=== PATIENT | male | born 1965 | race Caucasian/White ===

== ENCOUNTER → 2019-08-24 | Outpatient (CLI) | payer MEDICARE, OTHER ==
[~2019-08-24] MED LIST: ASPIRIN325 MG PO; ATENOLOL50 MG PO; ATORVASTATIN CA20 MG PO; CENTRUM MEN'S1 EACH PO; CYMBALTA30 MG PO; FLECTOR1 EACH PO; LASIX40 MG PO; LISINOPRIL5 MG PO; POTASSIUM CHLO20 ME1 PO; TIZANIDINE HCL4 MG PO; TOPIRAMATE25 MG PO; TYLENOL # 31 EA PO; ZYRTEC10 M3 PO
--- NOTE | 2019-08-24 11:41 | Diagnostic Imaging Report ---
EXAMINATION: CHEST 2 VIEWS INDICATION: Pre-operative COMPARISON: None FINDINGS: LINES/TUBES:None LUNGS:The lungs are hyperinflated. No focal consolidation or pulmonary edema. PLEURA:No pleural effusion or pneumothorax. MEDIASTINUM:The cardiomediastinal silhouette appears normal in size and shape. BONES/SOFT TISSUES:No acute osseous injury. ABDOMEN:No free air under the diaphragm. IMPRESSION: Hyperinflated lungs. No focal pneumonia or pulmonary edema. Signed by: Holger Lazcano MD on 08/24/2019 11:38 AM
[2019-08-24 11:42] LABS: BASOPHILS % 0.1 % (0.0-1.0); HEMATOCRIT 43.2 % (38.2-49.6); HEMOGLOBIN 13.9 g/dL (14.0-18.0); LYMPHOCYTES # (AUTO) 2.1 (1.0-3.2); LYMPHOCYTES % 18.3 % (18.0-39.1); MEAN CORPUSCULAR HEMOGLOBIN 28.5 pg (28-32); MEAN CORPUSCULAR HGB CONC 32.2 g/dL (31-35); MEAN CORPUSCULAR VOLUME 88.7 fL (81-99); MONOCYTES # (AUTO) 1.1 (0.2-0.8); MONOCYTES % 9.5 % (4.4-11.3); NEUTROPHILS # (AUTO) 8.1 (2.1-6.9); NEUTROPHILS % 71.7 % (38.7-80.0); PLATELET COUNT 190 x10e3/uL (140-360); RED BLOOD COUNT 4.87 x10e6/uL (4.3-5.7); RED CELL DISTRIBUTION WIDTH 14.1 % (11.7-14.4)
== END ==
LOC: DX 13:50 → EDSTATUS 08-29 09:00
PROVIDERS: ATTEND Surgery
DX: Z01.818 Encounter for other preprocedural examination (principal); E66.01 Morbid (severe) obesity due to excess calories; Z11.59 Encounter for screening for other viral diseases
CPT/HCPCS: 36415; 71046; 85025; 87635; 93005

== ENCOUNTER 2020-02-27 08:29 | Inpatient (IN) | payer MEDICARE ==
[2020-02-23 14:51] LABS: BASOPHILS % 0.1 % (0.0-1.0); HEMATOCRIT 41.6 % (38.2-49.6); HEMOGLOBIN 12.9 g/dL (14.0-18.0); LYMPHOCYTES # (AUTO) 2.3 (1.0-3.2); LYMPHOCYTES % 24.2 % (18.0-39.1); MEAN CORPUSCULAR HEMOGLOBIN 25.4 pg (28-32); MEAN CORPUSCULAR VOLUME 81.9 fL (81-99); MONOCYTES % 10.5 % (4.4-11.3); NEUTROPHILS # (AUTO) 6.2 (2.1-6.9); NEUTROPHILS % 64.7 % (38.7-80.0); PLATELET COUNT 252 x10e3/uL (140-360); RED BLOOD COUNT 5.08 x10e6/uL (4.3-5.7); RED CELL DISTRIBUTION WIDTH 15.4 % (11.7-14.4)
[2020-02-23 15:07] LABS: ANION GAP 13.1 mmol/L (8-16); BLOOD UREA NITROGEN 19 mg/dL (7-26); BUN/CREATININE RATIO 20 (6-25); CALCIUM 9.1 mg/dL (8.4-10.2); CARBON DIOXIDE 26 mmol/L (22-29); CHLORIDE 105 mmol/L (98-107); CREATININE, SERUM 0.93 mg/dL (0.72-1.25); EST GLOMERULAR FILTRATION RATE > 60 ML/MIN (60-); GLUCOSE 106 mg/dL (74-118); POTASSIUM 4.1 mmol/L (3.5-5.1); SODIUM 140 mmol/L (136-145)
[~2020-02-27] VITALS: Ht 182.9 cm; Wt 192.6 kg
[2020-02-27] MEDS ORDERED: CEFAZOLIN SOD 1 GM/NS 50ML 100 ML IV ONE (08:52)
[2020-02-27] MEDS ORDERED: BUPIVACAINE HCL 0.5% INJ 30 ML VIAL INJ ONE (08:55)
[2020-02-27] MEDS ORDERED: ACETAMINOPHEN 1000 MG/100 ML 100 ML IV ONE (09:10)
[2020-02-27] MEDS ORDERED: SCOPOLAMINE 1.5 MG PATCH ONE (09:11)
[2020-02-27] MEDS ORDERED: DICLOFENAC PO (09:19)
[2020-02-27] MEDS ORDERED: METFORMIN PO (09:19)
[2020-02-27] MEDS ORDERED: SCOPOLAMINE 1.5 MG PATCH TOP SCH (11:15)
[2020-02-27] MEDS ORDERED: ONDANSETRON HCL INJ 2MG/ML 2ML 2 MG/ML VIAL IV PRN (11:15)
[2020-02-27] MEDS ORDERED: METOCLOPRAMIDE HCL 10 MG/2ML VIAL ONE (11:31)
[2020-02-27] MEDS ORDERED: FENTANYL CITRATE/PF 100MCG/2 ML INJ ONE ×2 (11:32→13:41)
--- NOTE | 2020-02-27 11:34 | Operative Report ---
DATE OF PROCEDURE: 02/27/2020 SURGEON: Corey Coronado MD PREOPERATIVE DIAGNOSES: 1. Morbid obesity, BMI 58. 2. Hypertension. 3. Obstructive sleep apnea. POSTOPERATIVE DIAGNOSES: 1. Morbid obesity, BMI 58. 2. Hypertension. 3. Obstructive sleep apnea. PREOPERATIVE INDICATION: Treat disease, prevent complications related to comorbid conditions of obesity. PROCEDURE: Laparoscopic vertical sleeve gastrectomy. ANESTHESIA: General. METAL STUD FRAMER: Сергей Vo, assistant professor surgical technology (needed due to complexity of case). FLUIDS: 600 mL crystalloid. ESTIMATED BLOOD LOSS: 20 mL. DRAINS: None. COMPLICATIONS: None. SPECIMENS: Partial stomach. GRAFTS: None. FINDINGS: 1. Normal upper GI anatomy. 2. Negative intraoperative leak test. PROCEDURE IN DETAIL: The patient was brought to the operating room and was intubated under general endotracheal anesthesia. He was sterilely prepped and draped in the usual fashion. A preprocedure pause was performed identifying the patient, use of perioperative antibiotics, intended procedure, and staff surgeon. Access was gained via a 5 mm left subcostal incision using a Veress needle. The abdomen was insufflated. Four additional trocars were placed in standard position. Liver retractor was used to expose the stomach. I mobilized the greater curvature of stomach from about 3 cm proximal to the pyloric valve to the left nancy of diaphragm using the [place] LigaSure device. I then had Anesthesia inserted a 32-[place] ViSiGi tube along the lesser curvature of the stomach. The greater curvature of the stomach was resected with multiple firings of a 60 mm purple load [employer] stapling device, which was reinforced with TRS. Once the specimen was divided and we did a leak test, no leaks were identified. The specimen was removed through the right periumbilical port site. The port site was closed with 0 Vicryl suture using Klever-Ese technique. We then verified hemostasis, removed the liver retractor, and desufflated the abdomen. Trocars were removed. Incision sites were closed with 4-0 Monocryl suture in a subcuticular fashion. Dermabond dressings were applied. A 0.25% bupivacaine was used both at the preperitoneal incision site. The patient tolerated the procedure well. Type of wound was type 2, clean, and contaminated. All surgical sponge and instrument counts were correct. CoreyMD MARGAUX Estevez/MARKOS /[id number]
--- OUTSIDE RECORDS SUMMARY | 2020-02-27 11:36 | XMS REPORT | Clinical Summary ---
Author Author [facility] Organization [facility] Address Unknown Phone Unavailable Care Team Providers Care Candle Molder Name Role Phone Tiana Overton MD PCP Allergies No Known Active Allergies Medications End Date Status Medication Sig Dispensed Refills Start Date Active LYRICA 200 mg capsule Take 200 mg 0 12/25/19 1 by mouth 2 7 (two) times a day. Active topiramate (TOPAMAX) 25 Take 25 mg by 0 MG tablet mouth every evening. 25mg q am 50mg qhs Active diclofenac (VOLTAREN) 50 Take 50 mg by 0 12/29 / MG EC tablet mouth 2 (two) 7 times a day. Active tiZANidine (ZANAFLEX) 4 Take 4 mg by 0 07/21/ 201 MG tablet mouth 2 (two) 8 times a day. Active DULoxetine (CYMBALTA) 60 Take 60 mg by 0 03/08 / MG capsule mouth daily. 8 Active atenolol (TENORMIN) 50 MG Take 50 mg by 0 01/19 tablet mouth daily. 9 Active potassium chloride 20 mEq Take 1 tablet 0 12/20 tablet extended release by mouth 9 daily. Active atorvastatin (LIPITOR) 20 Take 20 mg by 0 MG tablet mouth daily. Default OP ins Active aspirin 325 MG tablet Take 325 mg 0 by mouth daily. Active furosemide (LASIX) 20 mg Take 40 mg by 0 tablet mouth daily. Active folic Take 1 tablet 0 acid/mv,iron,min/lutein by mouth ([id number] daily. EIN ORAL) Active amoxicillin (AMOXIL) 500 0 MG capsule 0 Active diclofenac (CATAFLAM) 50 0 MG tablet 0 Active HYDROcodone-acetaminophen Take 1 tablet 0 12/20 (XODOL) 7.5-300 mg per by mouth. 0 tablet Active lisinopriL (PRINIVIL) 20 0 mg tablet 0 Active metFORMIN (GLUCOPHAGE) 1 tablet with 0 500 mg tablet a meal Active metroNIDAZOLE (FLAGYL) 0 500 MG tablet 0 Active polyethylene as directed 0 glycol-electrolytes 0 (NULYTELY) 420 gram solution Active atenoloL (TENORMIN) 50 MG 1 tablet 0 09/18 tablet 0 Active atorvastatin (LIPITOR) 20 1 tablet 0 mg tablet Active DULoxetine (CYMBALTA) 60 1 capsule 0 MG capsule Active potassium chloride 1 packet with 0 (KLOR-CON) 20 mEq packet food 0 Active topiramate (TOPAMAX) 50 1 tablet 0 MG tablet 12/16/2019 Discontinued (Med List Clean up) furosemide (LASIX) 40 mg Take 60 mg by 0 12/30 tablet mouth daily. 7 12/16/2019 Discontinued (Med List Clean up) SACCHAROMYCES BOULARDII Take by 0 (PROBIOTIC, S.BOULARDII, mouth. ORAL) 12/16/2019 Discontinued (Med List Clean up) CETIRIZINE HCL (ZYRTEC Take by 0 ORAL) mouth. 12/16/2019 Discontinued (Med List Clean up) potassium 99 mg tablet Take by 0 mouth. 12/16/2019 Discontinued (Med List Clean up) traMADol (ULTRAM) 50 mg Take 50 mg by 0 tablet mouth daily. 12/16/2019 Discontinued (Med List Clean up) hydroCHLOROthiazide Take 12.5 mg 0 (HYDRODIURIL) 12.5 MG by mouth tablet daily. 12/16/2019 Discontinued (Med List Clean up) lisinopril Take 20 mg by 0 (PRINIVIL,ZESTRIL) 20 mg mouth daily. tablet 03/08/2019 anastrozole (ARIMIDEX) 1 Take 1 tablet 30 tablet 5 mg chemo (1 mg total) 9 tabletIndications: by mouth Hypogonadism in male daily for 180 days. 03/08/2019 clomiPHENE (CLOMID) 50 mg Take 1 tablet 30 tablet 5 tabletIndications: (50 mg total) 9 Hypogonadism in male by mouth daily for 180 days. 03/02/2019 cyclobenzaprine Take 1 tablet 20 tablet 0 02/01/20 1 (FLEXERIL) 10 mg tablet (10 mg total) 9 by mouth 3 (three) times a day as needed for muscle spasms for up to 30 days. 12/16/2019 Discontinued (Med List Clean up) lisinopril-hydrochlorothi 0 azide (PRINZIDE) 20-12.5 9 mg per tablet 12/20/2019 Discontinued (Stop Taking at Discharge) doxycycline (VIBRAMYCIN) Take 1 20 capsule 0 0 100 MG capsule capsule (100 0 mg total) by mouth 2 (two) times a day for 10 days. 12/20/2019 Discontinued (Reorder) lisinopriL (PRINIVIL) 5 Take 5 mg by 0 mg tablet mouth daily. 02/23/2020 Discontinued cetirizine (ZyrTEC) 10 MG Take 10 mg by 0 tablet mouth daily. 02/23/2020 Discontinued meropenem 1 g in sodium Infuse 1 g 1 each 0 chloride 0.9 % MBP 100 mL into a venous 0 IVPB catheter every 8 (eight) hours. 01/19/2020 lisinopriL (PRINIVIL) 5 Take 4 120 tablet 0 mg tablet tablets (20 0 mg total) by mouth daily for 30 days. Active Problems Problem Noted Date Bacteremia 12/15/2019 Chronic pain of both knees 04/05/2019 Primary osteoarthritis of knees, bilateral 9 Obesity (BMI 57.64) 04/05/2019 ED (erectile dysfunction) 07/22/2018 Hypogonadism in male 07/22/2018 BPH with obstruction/lower urinary tract symptoms Fever 06/23/2018 Dehydration 06/22/2018 Encounters Care Team Description Date Type Specialty Radha Armendariz MD History of infection due to ESBL Escheri caity coli (Primary Dx); Recurrent bacteremia 02/23/2020 Office Visit Infectious Diseases 02/23/2020 Travel Joss Jackson MA 02/23/2020 Orders Only Infectious Diseases Inga Harrington MD Anal fistula (Primary Dx) 02/17/2020 Office Visit General Surgery 02/17/2020 Travel Ariana Sivla RN 12/28/2019 Patient Quality Outreach Ariana Silva RN 12/28/2019 Patient Quality Outreach Ariana Silva RN 12/27/2019 Patient Quality Outreach Ariana Silva RN 12/27/2019 Patient Quality Outreach Ariana Silva RN 12/27/2019 Patient Quality Outreach Ariana Silva, RN 12/27/2019 Patient Quality Outreach Ariana Silva, RN 12/27/2019 Patient Quality Outreach Ariana Silva RN 12/27/2019 Patient Quality Outreach Ariana Silva, RN 12/23/2019 Patient Quality Outreach Melina Bryant MD 12/20/2019 Anesthesia Procedural Cardiolo gy Event Kanu Jaimes MD 12/18/2019 Anesthesia Procedural Cardiolo gy Event Jose Carlos Enriquez MD Khan, Kamran Ahmed, MD Bacteremia (Primary Dx); Sepsis due to Escherichia coli without acute organ dysfunction (HCC); Morbid obesity (HCC); Hypertension, unspecified type; Fistula; Pressure injury of left buttock, stage 2 (HCC); Dehydration; Fever, unspecified fever cause 12/15/[address] [facility] Internal Me dicine - Encounter 12/20/2019 Dee Yanez DO Fever in adult (Primary Dx) 12/14/2019 Emergency Emergency Medicine Gasper Garber MD Hypogonadism in male (Primary Dx); BPH with obstruction/lower urinary tract symptoms; Erectile dysfunction, unspecified erectile dysfunction type 11/17/2019 Telephone Urology Consult 11/15/2019 Travel Bridgett Garrido RN Hypogonadism in male (Primary Dx) 11/14/2019 Orders Only Urology Guillermo Choi MD Chronic pain of both knees (Primary Dx); Primary osteoarthritis of knees, bilateral; Obesity (BMI 57.64) 04/05/2019 Office Visit Orthopedic Surgery after 02/26/2019 Surgical History Surgery Date Site/Laterality Comments COLONOSCOPY APPENDECTOMY AV FISTULA REPAIR UMBILICAL HERNIA REPAIR UPPER GASTROINTESTINAL ENDOSCOPY COLONOSCOPY 01/15/2017 Diverticulosis in t he sigmoid colon and in the descending colon. Internal hemorrhoids. No specimens collected. COLONOSCOPY 01/15/2017 N/A Procedure: COLO NOSCOPY; Surgeon: Brian Alcocer MD; Location: [facility] ENDOSCOPY; Service: Gastroenterology; Laterality: N/A; ANAL SURGERY 1990s [place] Medical History Medical History Date Comments Diverticulosis Arthritis Hiatal hernia Sleep apnea Hemorrhoids Osteoarthritis 2010 Honestly don't alexander mber if this is the right type of arthrit Fractures 1976 Hypertension Tachycardia Obesity Family History Medical History Relation Name Comments Heart disease Father Marck Stroke Father Marck Heart disease Maternal Andrsé Grandfather Heart disease Paternal Nba Grandfather Relation Name Status Comments Father Marck Maternal Grandfather Andrés Mother Alive Paternal Grandfather Nba Social History Date Tobacco Use Types Packs/Day Years Used 01/24/1982 - 11/19/2016 Former Smoker Cigarettes 2 35 Smokeless Tobacco: Never Used Drinks/Week oz/Week Comments Alcohol Use No Alcohol Habits Answer Date Recorded How often do you have a drink containing alcohol? Never 06/22/2018 How many drinks containing alcohol do you have on No t asked a typical day when you are drinking? How often do you have six or more drinks on one Not asked occasion? Sex Assigned at Date Recorded Male 11/17/2019 12:53 PM CDT Date Recorded COVID-19 Exposure Response 02/23/2020 11:09 AM [employer] In the last month, have you been in contact with No / Unsure someone who was confirmed or suspected to have Coronavirus / COVID-19? Last Filed Vital Signs Reading Time Taken Comments Vital Sign 124/88 02/23/2020 11:18 AM [employer] Blood Pressure 78 02/23/2020 11:18 AM [employer] Pulse 37.1 C (98.7 F) 02/17/2020 10:05 AM CDT Temperature 20 12/20/2019 12:13 PM CDT Respiratory Rate 97% 02/23/2020 11:18 AM [employer] Oxygen Saturation - - Inhaled Oxygen Concentration 197 kg (434 lb 9.6 oz) 02/23/2020 11:18 AM [employer] Weight 182.9 cm (6') 02/23/2020 11:18 AM [employer] Height 58.94 02/23/2020 11:18 AM [employer] Body Mass Index Plan of Treatment Health Maintenance Due Date Last Done Comments COLONOSCOPY SCREENING 08/02/2013 SHINGLES VACCINES (#1) 08/02/2013 INFLUENZA VACCINE 11/19/2019 Procedures Comments Procedure Name Priority Date/Time Associated Diag nosis VENIPUNC NEED PHYS Routine 12/20/2019 SKILL,DX OR RX 12:15 PM CDT ECHOCARDIOGRAM Routine 12/20/2019 TRANSESOPHAGEAL 8:00 AM CDT COVID-19 QUALITATIVE PCR STAT 12/18/2019 3:28 PM CDT LACTIC ACID LEVEL Routine 12/17/2019 7:15 AM CDT BLOOD CULTURE, AEROBIC & Routine 12/17/2019 ANAEROBIC 7:15 AM CDT URINALYSIS SCREEN AND Routine 12/16/2019 MICROSCOPY, WITH REFLEX 5:10 PM CDT TO CULTURE URINE CULTURE Routine 12/16/2019 5:10 PM CDT URINE CULTURE Routine 12/16/2019 5:09 PM CDT PSA, ULTRASENSITIVE Routine 12/16/2019 4:07 PM CDT ESTIMATED GFR Routine 12/16/2019 1:41 PM CDT LACTIC ACID LEVEL Routine 12/16/2019 1:41 PM CDT HC COMPLETE BLD COUNT Routine 12/16/2019 W/AUTO DIFF 1:41 PM CDT COMPREHENSIVE METABOLIC Routine 12/16/2019 PANEL 1:41 PM CDT GRAM STAIN Routine 12/16/2019 1:29 PM CDT AEROBIC CULTURE Routine 12/16/2019 1:29 PM CDT ANAEROBIC CULTURE Routine 12/16/2019 12:00 PM CDT TTE COMPLETE, WO Routine 12/16/2019 CONTRAST, W DOPPLER 9:08 AM CDT ([id number]) CT ABDOMEN PELVIS WO Routine 12/15/2019 CONTRAST 9:54 PM CDT LACTIC ACID LEVEL, SEPSIS Timed 12/15/2019 - NOW AND REPEAT 2X EVERY 7:33 PM CDT 3 HOURS LACTIC ACID LEVEL, SEPSIS Timed 12/15/2019 - NOW AND REPEAT 2X EVERY 4:36 PM CDT 3 HOURS ECG 12-LEAD STAT 12/15/2019 2:01 PM CDT BLOOD CULTURE, AEROBIC & Routine 12/15/2019 ANAEROBIC 1:56 PM CDT XR CHEST 1 VW PORTABLE STAT 12/15/2019 1:52 PM CDT BLOOD CULTURE, AEROBIC & Routine 12/15/2019 ANAEROBIC 1:37 PM CDT LACTIC ACID LEVEL, SEPSIS Timed 12/15/2019 - NOW AND REPEAT 2X EVERY 1:28 PM CDT 3 HOURS ESTIMATED GFR Routine 12/15/2019 1:28 PM CDT B NATRIURETIC PEPTIDE Routine 12/15/2019 1:28 PM CDT TROPONIN Routine 12/15/2019 1:28 PM CDT COMPREHENSIVE METABOLIC Routine 12/15/2019 PANEL 1:28 PM CDT PROTHROMBIN TIME WITH INR Routine 12/15/2019 1:28 PM CDT HC COMPLETE BLD COUNT Routine 12/15/2019 W/AUTO DIFF 1:28 PM CDT ECG ED PRELIMINARY Routine 12/15/2019 INTERPRETATION 1:20 PM CDT [facility], E/M Routine 12/15/2019 30-74 MINUTES 1:20 PM CDT URINE CULTURE STAT 12/14/2019 3:41 PM CDT URINALYSIS SCREEN AND STAT 12/14/2019 MICROSCOPY, WITH REFLEX 3:40 PM CDT TO CULTURE LACTIC ACID LEVEL, SEPSIS Timed 12/14/2019 - NOW AND REPEAT 2X EVERY 3:30 PM CDT 3 HOURS RESPIRATORY PATHOGEN Routine 12/14/2019 PANEL 2:28 PM CDT COVID-19 QUALITATIVE PCR STAT 12/14/2019 2:28 PM CDT INFLUENZA ANTIGEN TEST, Routine 12/14/2019 REFLEX NEGATIVE TO RPP 2:28 PM CDT ESTIMATED GFR STAT 12/14/2019 1:55 PM CDT LACTIC ACID LEVEL, SEPSIS STAT 12/14/2019 - NOW AND REPEAT 2X EVERY 1:55 PM CDT 3 HOURS COMPREHENSIVE METABOLIC STAT 12/14/2019 PANEL 1:55 PM CDT HC COMPLETE BLD COUNT STAT 12/14/2019 W/AUTO DIFF 1:55 PM CDT BLOOD CULTURE, AEROBIC & Routine 12/14/2019 ANAEROBIC 1:55 PM CDT BLOOD CULTURE, AEROBIC & Routine 12/14/2019 ANAEROBIC 1:50 PM CDT TESTOSTERONE Routine 11/15/2019 Hypogonadism in male 4:57 PM CDT HEPATIC FUNCTION PANEL Routine 11/15/2019 Hypogon adism in male 4:57 PM CDT HEMOGLOBIN & HEMATOCRIT Routine 11/15/2019 Hypogo nadism in male 4:57 PM CDT ESTRADIOL LEVEL Routine 11/15/2019 Hypogonadism i n male 4:57 PM CDT XR KNEE 4+ VW BILATERAL Routine 04/05/2019 Chroni c pain of both 4:02 PM [employer] knees XR LEG LENGTH EVALUATION Routine 04/05/2019 Chron ic pain of both 4:02 PM [employer] knees [place] ARTHROCENTESIS Routine 04/05/2019 Primary oste oarthritis of ASPIR&/INJ MAJOR JT/BURSA 3:45 PM [employer] knees, bila teral W/O US after 02/26/2019 Results * [facility] NEED PHYS SKILL,DX OR RX (12/20/2019 12:15 PM CDT) Narrative Performed At Lizzie Sethi RN 12/20/2019 12:20 PM Midline Date/Time: 12/20/2019 12:15 PM Performed by: Lizzie Sethi RN Authorized by: Bernard Kelly MD Consent: Consent obtained: Verbal and writte n Consent given by: Patient Risks discussed: Arterial puncture, incorrect placement, nerve damage, bleeding, infection, superficial thromb us and deep vein thrombus Alternatives discussed: Alternative treatment and delayed treatment [place] protocol: Procedure explained and questions ans wered to patient or proxy's satisfaction: yes Relevant documents present and verifi ed: yes Test results available and properly l abeled: yes Imaging studies available: yes Required blood products, implants, de vices, and special equipment available: yes Site/side marked: yes Immediately prior to procedure, a salvador e out was called: yes Patient identity confirmed: Verball y with patient, arm band and hospital-assigned identification number Pre-procedure details: Hand hygiene: Hand hygiene performed prior to insertion Sterile barrier technique: All elemen ts of maximal sterile technique followed Skin preparation: ChloraPrep Skin preparation agent: Dried prior t o procedure Anesthesia (see MAR for exact dosages): Anesthesia method: Local infiltrati on Local anesthetic: Lidocaine 1% w/o epi Route administered: Subcutaneous MidLine Placement Details (Will create an LDA): Extremity Circumference Upper (cm): 38 Extremity Circumference Forearm (cm): 23 Extremity Circumference Site: 35 Patient position: Flat Indication: Known long term care administrator IV ther apy Location: Left cephalic Site selection rationale: Pt reques t Device Type: Non-valved Catheter Lumen(s): Single lumen Catheter size: 4 Fr Catheter to vein ratio: 15% MidLine Characteristics: Catheter Brand: zanda POWER GLIDE [place] O MIDLINE CATHETER External Catheter Length (cm): 0 Internal Catheter Length (cm): 10 Total Catheter Length (cm): 10 Catheter Lot Number: [id number] Catheter Expiration Date: 06/17/2020 Micro-Introducer Lot Number: [id number] Micro-Introducer Expiration Date: Procedure details: Landmarks identified: yes Ultrasound guidance: yes Sterile ultrasound techniques: Steril e gel and sterile probe covers were used Number of attempts: 1 Number of MidLine kits used during pr ocedure: 1 Extra guide wire required?: No Purpose of procedure: Midline Place ment Patency/Placement: Flushes without difficulty, flushed with 10 mL normal saline, positive blood return an d injection cap placed MidLine placed utilizing ultrasound-g uided Modified Seldinger Technique: Yes Dressing/Securement: Catheter secur ement device and antimicrobial dressing applied Blood Loss Amount: Less than 20 mL Post-procedure details: Post-procedure: Dressing applied Name of provider who confirmed tip pl acement:: Lizzie Sethi RN, [place]-, PICC team used USG to place catheter to left cephalic vein and used ultrasound to take a picture of the wir e in the vein. Patient tolerance of procedure: Arelis erated well, no immediate complications Comments: Taught pt not to use left arm with l ifting, pulling, gentle movements only. Keep clean and dry. Wrap for show ering. Pt verbalized understanding. Report to Leo Arenas RN, primary n kyle. * Echocardiogram transesophageal (12/20/2019 8:00 AM CDT) MAX Pred HR 163.62 [facility] 85 of MPHR 139.08 [facility] Calc MPHR 163.62 bpm [facility] Pred Exer Dur 9.26 [facility] R1 Pred METS R1 9.54 [facility] BSA 3.16 m2 [facility] Specimen Narrative Performed At [facility] Left ventricular systolic function i s normal. There is mild left ventricular ba ntric hypertrophy. Left Ventricular ejection fraction i s 60 - 65%. Left atrium size is moderately dilat ed. There is mild sclerosis of the aorti c valve leaflets. There is [id number] mitral isabella ve regurgitation. No evidence of endocarditis Performing Organization Address City/State/ZIP Code P marilu Number [facility] [address] [place] [address], * COVID-19 qualitative PCR (12/18/2019 3:28 PM CDT) Only the most recent of 2 results within the time period is included. Interpretation Negative results do not [place] preclude 2019-nCoV infection [facility] and should not be used as the HOSPITAL sole basis for treatment or other patient management decisions. Negative results must be combined with clinical observations, patient history, and epidemiological information. COVID-19 Not-Detected Not-Detected [place] qualitative PCR [facility] result HOSPITAL COVID-19 See link below for PDF Lab [place] qualitative PCR ReportComment: Case Number: [facility] [id number] [facility]OSPITAL Specimen Nasopharyngeal swab Performing Organization Address City/State/ZIP Code P marilu Number [facility] DEPARTMENT OF [address] [place] [address] PATHOLOGY AND GENOMIC MEDICINE [facility] [address] [place] [id number] [facility] * Blood culture, aerobic & anaerobic (12/17/2019 7:15 AM CDT) Only the most recent of 5 results within the time period is included. Blood culture No growth after 5 days of [place] isolate incubation. [facility] Comment: HOSPITAL Specimen Information Specimen Source: Blood Specimen Site: Unspecified Specimen Blood Performing Organization Address City/[facility]/ZIP Code P marilu Number [facility] DEPARTMENT OF [address] [place] [address] PATHOLOGY AND GENOMIC MEDICINE [address] * Lactic acid level (12/17/2019 7:15 AM CDT) Only the most recent of 2 results within the time period is included. [facility] Lactic acid 1.0 0.5 - 2.2 mmol/L [facility] Specimen Blood Performing Organization Address City/[facility] Code P marilu Number [facility] DEPARTMENT OF [address] [place] [address] PATHOLOGY AND GENOMIC MEDICINE [address] * Urinalysis screen and microscopy, with reflex to culture (12/16/2019 5:10 PM CDT) Only the most recent of 2 results within the time period is included. Specimen site Clean catch [facility] Color, UA Yellow [facility] Appearance, UA Clear [facility] Specific 1.031 1.001 - 1.035 [place] gravity, UA [facility] pH, UA 5.0 5.0 - 8.5 [facility] Protein, UA 2+ (A) Negative [facility] Glucose, UA Negative Negative [facility] Ketones, UA Negative Negative [facility] Bilirubin, UA Negative Negative [facility] Blood, UA Negative Negative [facility] Nitrite, UA Negative Negative [facility] Urobilinogen, 4.0 (A) <2.0 [place] UA [facility] Leukocyte Negative Negative [place] esterase, UA [facility] Epithelial Few /HPF [place] cells, UA [facility] WBC, UA 2 0 - 1 /HPF [facility] RBC, UA 2 0 - 5 /HPF [facility] Bacteria, UA None seen None seen [facility] Yeast, UA None seen [facility] Yeast with None seen [place] pseudohyphae, [facility] Specimen Urine Performing Organization Address City/[facility] P marilu Number [facility] DEPARTMENT OF [address] [place] [address] PATHOLOGY AND GENOMIC MEDICINE [address] * Urine culture (12/16/2019 5:10 PM CDT) Only the most recent of 3 results within the time period is included. Pathologist [facility] Urine culture SEE COMMENTComment: [place] Bacteriuria screen negative. [facility] Specimen Urine Performing Organization Address [facility] P marilu Number [facility] DEPARTMENT OF [address] [place] [address] PATHOLOGY AND GENOMIC MEDICINE [address] * PSA, ultrasensitive (12/16/2019 4:07 PM CDT) PSA, 0.18 0.00 - 4.00 ng/mL [facility] ultrasensitive Comment: INTERPRETIVE INFORMATION: PSA Ultra Sensitive After radical prostatectomy, the reference interval is less than 0.05 ng/mL if there is no residual disease. In healthy males without prostatectomy, the reference interval is 4.00 ng/mL or less. The lower limit of detection is 0.01 ng/mL. The Ernie PSA electrochemiluminescent immunoassay was used. Results obtained with different assay methods or kits cannot be used interchangeably. The Ernie PSA method is approved for use as an aid in the detection of prostate cancer when used in conjunction with a digital rectal exam in men age 50 and older. The Ernie PSA method is also indicated for the serial measurement of PSA to aid in the prognosis and management of prostate cancer patients. Elevated PSA concentrations can only suggest the presence of prostate cancer until biopsy is performed. PSA concentrations can also be elevated in benign prostatic hyperplasia or inflammatory conditions of the prostate. PSA is generally not elevated in healthy men or men with nonprostatic carcinoma. Performed By: [facility] [address] [place] [address] Insurance Salesperson: Sarah Good MD Specimen Serum Performing Organization Address City/[facility]/ZIP Code P marilu Number [facility] [address] [place] [address] [facility] [address] [place] [address] * Estimated GFR (12/16/2019 1:41 PM CDT) Only the most recent of 3 results within the time period is included. [facility] Estimated GFR 84 mL/min/1.73 m2 [place] Comment: [facility] G1 >=90 Normal or high G2 60-89 Mildly decreased G3a 45-59 Mildly to moderately decreased G3b 30-44 Moderately to severely decreased G4 15-29 Severely decreased G5 <15 Kidney failure The eGFR was calculated using the Chronic Kidney Disease Epidemiology Collaboration (CKD-EPI) equation. Interpretation is based on recommendations of the National Kidney Foundation-Kidney Disease Outcomes Quality Initiative (NKF-KDOQI) published in 2014. Specimen Performing Organization Address City/[facility]/ZIP Code P marilu Number [facility] DEPARTMENT OF [address] [place] [address] PATHOLOGY AND GENOMIC MEDICINE [facility] [address] * CBC with platelet and differential (12/16/2019 1:41 PM CDT) Only the most recent of 3 results within the time period is included. [facility] WBC 5.4 4.2 - 11.0 k/uL [facility] RBC 4.16 4.04 - 5.86 m/uL [facility] HGB 11.0 (L) 13.0 - 17.3 g/dL [facility] HCT 36.0 34.0 - 45.0 % [facility] MCV 86.5 80.0 - 98.0 fL [facility] MCH 26.4 (L) 27.0 - 34.0 pg [facility] MCHC 30.6 (L) 31.5 - 36.5 g/dL [facility] RDW - SD 49.6 37.0 - 51.0 fL [facility] MPV 12.0 (H) 7.4 - 10.4 fL [facility] Platelet count 125 (L) 150 - 400 k/uL [facility] Nucleated RBC 0.00 /100 WBC [facility] Neutrophils 66.5 (H) 36.0 - 66.0 % [facility] Lymphocytes 19.5 (L) 24.0 - 44.0 % [facility] Monocytes 13.6 (H) 0.0 - 6.0 % [facility] Eosinophils 0.0 0.0 - 6.0 % [facility] Basophils 0.0 0.0 - 1.2 % [facility] Immature 0.4 0.0 - 1.0 % [place] granulocytes [facility] Specimen Blood Performing Organization Address City/State/ZIP Code P marilu Number [facility] DEPARTMENT OF [address] [place] [address] PATHOLOGY AND GENOMIC MEDICINE [address] * Comprehensive metabolic panel (12/16/2019 1:41 PM CDT) Only the most recent of 3 results within the time period is included. Sodium 136 135 - 150 mEq/L [facility] Potassium 4.1 3.5 - 5.0 mEq/L [facility] Chloride 101 98 - 112 mEq/L [facility] CO2 23 (L) 24 - 31 mmol/L [facility] Anion gap 12@ANIO 7 - 15 mEq/L [facility] BUN 17 7 - 18 mg/dL [facility] Creatinine 1.00 0.70 - 1.20 mg/dL [facility] Glucose 203 (H) 65 - 100 mg/dL [facility] Calcium 8.2 (L) 8.3 - 10.2 mg/dL [facility] Protein 6.1 (L) 6.3 - 8.3 g/dL [facility] Albumin 3.0 (L) 3.5 - 5.0 g/dL [facility] A/G ratio 1.0 0.7 - 3.8 [facility] Alkaline 62 0 - 129 U/L [place] phosphatase [facility] AST 28 10 - 50 U/L [facility] ALT 24 5 - 50 U/L [facility] Total bilirubin 0.5 0.2 - 1.2 mg/dL [facility] Specimen Blood Performing Organization Address City/[facility]/ZIP Code P marilu Number [facility] DEPARTMENT OF [address] [place] [address] PATHOLOGY AND GENOMIC MEDICINE [facility] [address] * Aerobic culture (12/16/2019 1:29 PM CDT) Aerobic culture Staphylococcus, coagulase [place] isolate negative [facility] , identification/susceptibility to follow (A) Comment: Specimen Information Specimen Source: Wound Specimen Site: Buttock Specimen Wound - Buttock Antibiotic Method Susceptibility Organism Ampicillin ANTOLIN mcg/mL: Resistant Staphylococcus coagulase negative Chloramphenicol ANTOLIN mcg/mL: Susceptible Staphylococcus coagulase negative Clindamycin ANTOLIN >4 mcg/mL: Resistant Staphylococcus coagulase negative Doxycycline ANTOLIN 2 mcg/mL: Susceptible Staphylococcus coagulase negative Erythromycin ANTOLIN >4 mcg/mL: Resistant Staphylococcus coagulase negative Linezolid ANTOLIN 4 mcg/mL: Susceptible Staphylococcus coagulase negative Oxacillin ANTOLIN >1 mcg/mL: Resistant Staphylococcus coagulase negative Penicillin G ANTOLIN >1 mcg/mL: Resistant Staphylococcus coagulase negative Rifampin ANTOLIN <=0.25 mcg/mL: Susceptible Staphylococcus coagulase negative Tetracycline ANTOLIN 4 mcg/mL: Susceptible Staphylococcus coagulase negative Vancomycin ANTOLIN 1 mcg/mL: Susceptible Staphylococcus coagulase negative Trimethoprim/Sulfamethoxazole ANTOLIN >2/38 mcg/mL: Resistant Staphylococcus coagulase negative Performing Organization Address City/State/ZIP Code P marilu Number [facility] DEPARTMENT OF [address] [place] [address] PATHOLOGY AND GENOMIC MEDICINE [address] * Gram stain (12/16/2019 1:29 PM CDT) Pathologist [facility] Gram stain No WBC's or organisms seen. [place] isolate Comment: [facility] Specimen Information HOSPITAL Specimen Source: Wound Specimen Site: Buttock Specimen Wound - Buttock Performing Organization Address City/State/ZIP Code P marilu Number [facility] DEPARTMENT OF [address] [place] [address] PATHOLOGY AND GENOMIC MEDICINE [place] [facility] [address] [place] [address] HOSPITAL * Anaerobic culture (12/16/2019 12:00 PM CDT) Pathologist [facility] Anaerobic No anaerobic organisms [place] culture isolate isolated. [facility] Comment: HOSPITAL Specimen Information Specimen Source: Wound Specimen Site: Buttock Specimen Wound - Buttock Performing Organization Address City/State/ZIP Code P marilu Number [facility] DEPARTMENT OF [address] [place] [address] PATHOLOGY AND GENOMIC MEDICINE [place] [facility] [address] [place] [address] HOSPITAL * Transthoracic Echocardiogram Complete, (w Contrast, Strain and 3D if needed) (12/16/2019 9:08 AM CDT) Pathologist [facility] AoV Mean PG 5.27 mmHg [facility] AoV Peak PG 8.72 mmHg [facility] AoV Vmax 1.58 m/s [facility] AoV VTI 0.29 m [facility] BSA Torres 3.66 m2 [facility] BSA 3.35 m2 [facility] IVS,d 1.47 cm [facility] IVS/LVPW,2D 1.65 [facility] LV,d 5.16 cm [facility] LV EF,2D 63.91 % [facility] LV,s 3.68 cm [facility] LVOT Vmax 1.14 m/s [facility] LVOT VTI 0.19 m [facility] LVPWD,d 0.89 cm [facility] TR Vpeak 2.57 mm/s [facility] MV E A ratio 1.12 [facility] TR pk grad 26.41 mmHg [facility] BMI 61.43 kg/m2 [facility] E wave 174.20 msec [facility] decelartion time MV Peak A Jacob 0.92 m/s [facility] MV valve area p 6.04 cm2 [facility] 1/2 method MV Peak E Jacob 1.15 m/s [facility] MV stenosis 36.45 ms [facility] pressure 1/2 time AV LVOT peak 5.14 mmHg [facility] gradient MV mean 2.65 mmHg [facility] gradient LV SYS VOL 57.28 ml [facility] LV CHRISTOPHER VOL 127.49 ml [facility] LV SI Teich 2D 20.95 ml/m2 [facility] LV SV Teich 2D 70.21 ml [facility] LV Vol s Teich 57.28 ml [facility] PSAX MR peak grad 5.51 mmHg [facility] MV Vmax 1.17 m [facility] MV VTI Tips 0.23 m [facility] BSA Haycock 3.70 m2 [facility] AoV Vmn 1.06 [facility] IVS s 2D 1.15 [facility] LV FS Teich 2D 28.80 [facility] MV AE ratio 0.89 [facility] LV FS Cube 2D 28.80 [facility] LVOT Vmn 0.72 [facility] Pt Size 195.58 [facility] Pt Wt 234.96 [facility] LVOT mean grad 2.40 mmHg [facility] MAX Pred HR 163.63 [facility] 85 of MPHR 139.09 [facility] Calc MPHR 163.63 bpm [facility] IVS pct thck -21.49 % [facility] PLAX LV SI Cube 2D 26.27 ml/m2 [facility] LV SV Cube 2D 88.05 ml [facility] LV vol d cube 137.78 ml [facility] 2D LV vol s cube 49.73 ml [facility] 2D LVPW pct thck 86.46 % [facility] PLAX LVPW s PLAX 1.66 cm [facility] MV Decel slope 6.59 m/s2 [facility] Pred Exer Dur 9.26 [facility] R1 Pred METS R1 9.54 [facility] Velocity Ratio 0.72 m/s [facility] (V1/V2) EF 55.07 % [facility] E/A ratio 1.25 [facility] Specimen Narrative Performed At [facility] Left ventricular systolic function i s normal. There is mild left ventricular ba ntric hypertrophy. Left Ventricular ejection fraction i s 60 - 65%. Left atrium size is moderately dilat ed. Spectral Doppler shows pseudonormal pattern of left ventricular diastolic filling. Morbid obesity. TDS. Poor visualizti on of cardiac valves. Unable to rule out endocarditis on this study. Recomme nd CECILIA, is clinically indicated. Performing Organization Address [facility]/State/ZIP Code P marilu Number [facility] [address] [place] [address], [place] * CT Abdomen Pelvis Wo Contrast (12/15/2019 9:54 PM CDT) Specimen Narrative Performed At Examination: CT ABDOMEN PELVIS WO CONTRAST RADI ANT Clinical History: Abd pain unspecifie d Comparison: None. Findings: CT scans are performed using radiation dose reduction techniques. Technical factors are evaluated and adjusted to e nsure appropriate moderation of exposure. Automated dose management technology is applied to adjust radiation exposure while achieving a diagnostic quality image. CT imaging wa s performed with iterative reconstruction techniques and/or automated exposure co ntrol to reduce radiation dose. CT scan of abdomen and pelvis was perfo rmed without intravenous contrast. The liver is diffusely low in density. The spleen, pancreas, gallbladder, and adrenal glands are unremarkable. The kidneys are slightly atrophic but n o hydronephrosis or urinary calculus is seen. Scattered colonic diverticuli are noted . No bowel thickening or fat stranding is seen. No bowel dilatation is seen. No free air or fluid is seen. Urinary b ladder is unremarkable. The visualized lung bases are clear. IMPRESSION: 1. Fatty liver. 2. Colonic diverticulosis without evide nce of inflammation. 3. Otherwise no acute abnormality ident ified in the abdomen or pelvis. [id number] Procedure Note Hm Interface, Radiology Results Incoming - 12/15/2019 10:08 PM CDT Examination: CT ABDOMEN PELVIS WO CONTRAST Clinical History: Abd pain unspecified Comparison: None. Findings: CT scans are performed using radiation dose reduction techniques. Technical factors are evaluated and adjusted to ensure appropriate moderation of exposure. Automated dose management technology is applied to adjust radiation exposure while achieving a diagnostic quality image. CT imaging was performed with iterative reconstruction techniques and/or automated exposure control to reduce radiation dose. CT scan of abdomen and pelvis was performed without intravenous contrast. The liver is diffusely low in density. The spleen, pancreas, gallbladder, and adrenal glands are unremarkable. The kidneys are slightly atrophic but no hydronephrosis or urinary calculus is seen. Scattered colonic diverticuli are noted. No bowel thickening or fat stranding is seen. No bowel dilatation is seen. No free air or fluid is seen. Urinary bladder is unremarkable. The visualized lung bases are clear. IMPRESSION: 1. Fatty liver. 2. Colonic diverticulosis without eviden ce of inflammation. 3. Otherwise no acute abnormality identi fied in the abdomen or pelvis. [id number] Performing Organization Address [facility]/ZIP Code P marilu Number [facility] [address] [place] [address] * Lactic acid level, SEPSIS - Now and repeat 2x every 3 hours (12/15/2019 7:33 PM CDT) Only the most recent of 5 results within the time period is included. Lactic acid 1.9 0.5 - 2.2 mmol/L [facility] Specimen Blood Performing Organization Address City/[facility]/ZIP Code P marilu Number [facility] DEPARTMENT OF [address] [place] [address] PATHOLOGY AND GENOMIC MEDICINE [facility] [address] * ECG 12 lead (12/15/2019 2:01 PM CDT) Ventricular 90 [facility]USE rate Atrial rate 90 [facility] MUSE [place] interval 166 [facility] M[facility] QRSD interval 80 [facility] QT interval 334 [facility] MUSE QTC interval 408 [facility] P axis 1 58 [facility] M[facility] QRS axis 1 62 [facility] MUSE T wave axis 55 [facility]USE EKG impression Normal sinus rhythm-Normal [facility] MUSE ECG-In automated comparison with ECG of 15-DEC-2019 14:00,-No significant change was found- Specimen Narrative Performed At This result has an attachment that is n ot available. Performing Organization Address [facility] Code P marilu Number [facility] MUSE [address] [place] [address] * XR Chest 1 Vw Portable (12/15/2019 1:52 PM CDT) Specimen Narrative Performed At EXAMINATION: XR CHEST 1 VW PORTABLE [facility] CLINICAL HISTORY: chest pain COMPARISON: To a previous examination from 01/21/2019 IMPRESSION: The cardiomediastinal silhouette is nor mal in appearance. The lungs are clear. There is no eviden ce of consolidation, congestion, or pneumothorax. A pleural effusion is not present. Visualized skeletal structures demonstr ate no definite abnormality. Negative examination. [facility]-[id number] Procedure Note Hm Interface, Radiology Results Incoming - 12/15/2019 1:57 PM CDT EXAMINATION: XR CHEST 1 VW PORTABLE CLINICAL HISTORY: chest pain COMPARISON: To a previous examination from 01/21/2019 IMPRESSION: The cardiomediastinal silhouette is normal in appearance. The lungs are clear. There is no evidence of consolidation, congestion, or pneumothorax. A pleural effusion is not present. Visualized skeletal structures demonstrate no definite abnormality. Negative examination. [facility]-[id number] Performing Organization Address City/State/ZIP Code P marilu Number [facility] [address] [place] [address] * Troponin (12/15/2019 1:28 PM CDT) Troponin 0.011 0.000 - 0.040 ng/mL [place] Comment: [place] In patients suspected of [facility] having a myocardial HOSPITAL infarction, along with all other appropriate clinical measures and actions including ECG and other diagnostics as appropriate, measure Ultra TnI at 0 hrs and at 3 hrs. Myocardial infarction VERY LIKELY The 0 hr TnI level is > 0.10 ng/mL Myocardial infarction LIKELY The 0 hr TnI level is > 0.04 ng/mL and 3 hr level is increased or decreased by at least 0.020 ng/mL Myocardial infarction VERY UNLIKELY Both the 0 hr and 3 hr TnI levels <= 0.04 ng/mL(within normal limits) OR 0 hr is > 0.04 ng/mL and 3 hr is increased OR decreased by less than 0.020 ng/mL Specimen Blood Performing Organization Address City/State/ZIP Code P marilu Number [facility] [address] [place] [address] PATHOLOGY AND GENOMIC MEDICINE DEMETRIS PAVONCOOLIDGEJeffry Telles [address] * Prothrombin time with INR (12/15/2019 1:28 PM CDT) Prothrombin 15.2 (H) 11.5 - 14.5 sec [facility] INR 1.19 [place] Comment: [place] For patients on anticoagulant [facility] therapy, reference ranges HOSPITAL below: Indication: INR Value Treatment of Venous Thrombosis, 2.0-3.0 pulmonary emboli, or prophylaxis of a venous thrombosis, or systemic emboli. High dose, high risk patients 3.0-4.5 with mechanical valves. NOTE: INR values over 3.0 are sometimes associated with gastrointestinal hemorrhage, especially values over 4.0. Specimen Blood Performing Organization Address City/[facility] [place] [address] PATHOLOGY AND GENOMIC MEDICINE [address] * B natriuretic peptide (12/15/2019 1:28 PM CDT) BNP 57 0 - 100 pg/mL [facility] Specimen Blood Performing Organization Address City/[facility] [place] [address] PATHOLOGY AND GENOMIC MEDICINE [address] * ECG ED Preliminary Interpretation - Not an Order (12/15/2019 1:20 PM CDT) Narrative Performed At Jose Carlos Enriquez MD 12/15/2019 2:40 PM ECG ED Preliminary Interpretation - Not an Order Performed by: Jose Carlos Enriquez MD Authorized by: Jose Carlos Enriquez MD ECG reviewed by ED Physician in the abs ence of a sports book writer: yes Previous ECG: Previous ECG: Compared to current Interpretation: Interpretation: normal Rate: ECG rate: 90 ECG rate assessment: normal Rhythm: Rhythm: sinus rhythm Ectopy: Ectopy: none QRS: QRS axis: Normal Conduction: Conduction: normal ST segments: ST segments: Normal T waves: T waves: normal * CRITICAL CARE (12/15/2019 1:20 PM CDT) Narrative Performed At Jose Carlos Enriquez MD 12/15/2019 2:40 PM Critical Care Performed by: Jose Carlos Enriquez MD Authorized by: Jose Carlos Enriquez MD Critical care provider statement: Critical care time (minutes): 45 Critical care time was exclusive of: Separately billable procedures and treating other patients Critical care was time spent personal ly by me on the following activities: Development of treatment plan with patient or surrogate, discussions with primary provider, eval uation of patient's response to treatment, examination of patient, obta ining history from patient or surrogate, re-evaluation of patient's c ondition, pulse oximetry, ordering and review of radiographic studies, ord ering and review of laboratory studies and ordering and performing delfina atments and interventions Nain 'yes' if you are taking over cri tical care for this patient from another provider.: no * Respiratory pathogen panel (12/14/2019 2:28 PM CDT) Adenovirus PCR Not Detected [place] Comment: [place] Specimen Information HOSPITAL Specimen Source: Nares Specimen Site: Right Coronavirus Not Detected [place] HKU1 PCR [facility] Coronavirus Not Detected [place] NL63 PCR [facility] Coronavirus Not Detected [place] 229E PCR [facility] Coronavirus Not Detected [place] OC43 PCR [facility] Human Not Detected [place] metapneumovirus [facility]OS[facility] Human Not Detected [place] rhinovirus/ente [facility] rovirus PCR HOSPITAL Influenza A PCR Not Detected [facility] Influenza A/H1 Not Reported [place] PCR [facility] Influenza A/H3 Not Reported [place] PCR [facility] Influenza Not Reported [place] A/H1-2009 [facility] Influenza B PCR Not Detected [facility] Parainfluenza Not Detected [place] virus 1 PCR [facility] Parainfluenza Not Detected [place] virus 2 PCR [facility] Parainfluenza Not Detected [place] virus 3 PCR [facility] Parainfluenza Not Detected [place] virus 4 PCR [facility] Respiratory Not Detected [place] syncytial virus [facility] Bordetella Not Detected [place] pertussis PCR [facility] Bordetella Not Detected [place] parapertussis [facility] Chlamydia Not Detected [place] pneumoniae PCR [facility] Mycoplasma Not Detected [place] pneumoniae PCR [facility] Influenza A no Not Reported [place] sub type PCR [facility] Specimen Nares - Right Performing Organization Address City/State/ZIP Code P marilu Number [place] [id number] PATHOLOGY AND GENOMIC MEDICINE [place] [facility] [address] [place] [address] HOSPITAL * Influenza antigen test, reflex negative to RPP (12/14/2019 2:28 PM CDT) [facility] Influenza Negative for Influenza A/B [place] antigen antigen. [facility] Comment: [place] Specimen Information HOSPITAL Specimen Source: Nares Specimen Site: Right Specimen Nares - Right Performing Organization Address City/[facility]/ZIP Code P marilu Number [facility] DEPARTMENT [address] [place] [address] PATHOLOGY AND GENOMIC MEDICINE [place] [facility] [address] [place] [address] HOSPITAL * Hemoglobin & hematocrit (11/15/2019 4:57 PM CDT) [facility] HGB 12.6 (L) 13.2 - 17.1 g/dL [facility] HCT 38.9 38.5 - 50.0 % [facility] Specimen Blood Resulting Agency Comment Performing Organization Information: Site ID: [id number] Name: [facility] Address: [address] [place] [id number] Director: Kailash Torres Performing Organization Address City/[facility] P marilu Number [place] [id number] * Estradiol level (11/15/2019 4:57 PM CDT) [facility] Estradiol 26 < OR = 39 pg/mL [facility] Comment: DIAGNOSTICS Reference range established on [place] post-pubertal patient population. No pre-pubertal reference range established using this assay. For any patients for whom low Estradiol levels are anticipated (e.g. males, pre-pubertal children and hypogonadal/post-menopausal females), the [facility] Estradiol, Ultrasensitive, LCMSMS assay is recommended (order code 61511). Please note: patients being treated with the drug fulvestrant (Faslodex(R)) have demonstrated significant interference in immunoassay methods for estradiol measurement. The cross reactivity could lead to falsely elevated estradiol test results leading to an inappropriate clinical assessment of estrogen status. [facility] order code [id number], Ultrasensitive LC/MS/MS demonstrates negligible cross reactivity with fulvestrant. Specimen Blood Resulting Agency Comment Performing Organization Information: Site ID: [id number] Name: [facility] Address: [address] [place] [address] Director: Kailash Torres Performing Organization Address City/State/ZIP Code P marilu Number [facility] [place] [address] [place] [phone] * Testosterone (11/15/2019 4:57 PM CDT) Testosterone, 203 (L) 250 - 1,100 ng/dL [facility] total, lc/ms/ms Comment: Men with clinically significant hypogonadal symptoms and testosterone values repeatedly in the range (Note) For additional information, please refer to http://education.[employer].com/faq/TotalTestosteroneL CMSMS (This link is being provided for informational/educational purposes only.) This test was developed and its analytical performance characteristics have been determined by [employer]. It has not been cleared or approved by the FDA. This assay has been validated pursuant to the CLIA regulations and is used for clinical purposes. [facility] med fusion [address] [place] [address],[address] [place], [place] [id number] Pavan Neumann MD Specimen Blood Resulting Agency Comment Performing Organization Information: Site ID: [id number] Name: [facility] Address: [address] [place] [address], [address] [address] Director: Pavan Neumann MD Performing Organization Address City/State/ZIP Code P marilu Number [facility] * Hepatic function panel (11/15/2019 4:57 PM CDT) Protein 6.0 (L) 6.1 - 8.1 g/dL [facility] [place] Albumin, S 3.8 3.6 - 5.1 g/dL [facility] [place] Globulin, total 2.2 1.9 - 3.7 g/dL [facility] (calc) [facility] [place] Albumin/globuli 1.7 1.0 - 2.5 (calc) [facility] n ratio [facility] [place] Total bilirubin 0.4 0.2 - 1.2 mg/dL [facility] [place] Bilirubin 0.1 < OR = 0.2 mg/dL [facility] direct [facility] [place] Bilirubin, 0.3 0.2 - 1.2 mg/dL [facility] indirect (calc) [facility] [place] Alkaline 86 35 - 144 U/L [facility] phosphatase [facility] [place] AST 18 10 - 35 U/L [facility] [place] ALT 21 9 - 46 U/L [facility] [place] Specimen Blood Resulting Agency Comment Performing Organization Information: Site ID: [id number] Name: [facility] Address: [address] [place] [address] Director: Kailash Torres Performing Organization Address City/State/ZIP Code P marilu Number [facility] [place] [address] [place], [place] [address] * XR Knee 4+ Vw Bilateral (04/05/2019 4:02 PM [employer]) Specimen Narrative Performed At [facility] Long-leg alignment film of both knees s hows the patient has varus alignment. Performing Organization Address [facility]/ZIP Code P marilu Number [facility] [address] [place] [address] * XR Leg Length Evaluation (04/05/2019 4:02 PM [employer]) Specimen Narrative Performed At [facility] Long-leg evaluation of both knees shows the patient has severe varus alignment. Performing Organization Address [facility]/ZIP Code P marilu Number [facility] [address] [place] [address] * Large Joint Arthrocentesis: knee, Bilateral knee (04/05/2019 3:45 PM [employer]) Narrative Performed At Guillermo Choi MD 2018 4:32 PM Large Joint Arthrocentesis: knee, Bilat eral knee Consent given by: patient Site marked: site marked Supporting Documentation Indications: pain Procedure Details Preparation: Patient was prepped and dr wu in the usual sterile fashion Location: knee - Bilateral knee Right side: Needle size: 22 G Approach: anterolateral Right knee medications administered: 3 mL lidocaine 10 mg/mL (1 %); 40 mg triamcinolone acetonide 40 mg/mL (1 mL) Patient tolerance: patient tolerated th e procedure well with no immediate complications Left side: Needle size: 22 G Approach: anterolateral Left knee medications administered: 3 m L lidocaine 10 mg/mL (1 %); 40 mg triamcinolone acetonide 40 mg/mL (2 mL) Patient tolerance: patient tolerated th e procedure well with no immediate complications after 02/26/2019 Insurance Type Payer Benefit Subscriber ID Effective Phone Address Plan / Dates Group [facility] AARP [id number] 2019-P MEDICARE resent ADVANTAGE PLAN HMO-POS ([employer]) Advance Directives For more information, please contact: [phone] Patient Bow Tacker Explanation Type Date Recorded Advance Directives, 06/22/2018 5:36 PM Living Will and Medical Power of Order Planner Advance Directives, 01/31/2019 12:45 AM Living Will and Medical Power of Order Planner Advance Directives, 07/06/2018 3:56 PM Living Will and Medical Power of Order Planner Advance Directives, 12/14/2019 11:48 AM Living Will and Medical Power of Order Planner Advance Directives, 12/15/2019 1:29 PM Living Will and Medical Power of Order Planner
--- OUTSIDE RECORDS SUMMARY | 2020-02-27 11:37 | XMS REPORT | Continuity of Care Document ---
Author Author [facility] t Organization [facility] Address [address] [place] [address] Phone Unavailable Care Team Providers Care Overlocker Name Role Phone Brooklynn BELL, Fifi Richardsina PCP Kala BELL, Radha Attphys Renetta GARCIA, Joss Attphys Unavailable Juany BELL, Yefri Xiong Attphys Shira MUNIZ, Ariana Attphys Unavailable Mina BELL, Wyatt Branch Attphys Robin BELL, Thom Wagner Attphys Manny BELL, Brenda Summers Attphys Fiona BELL, Kanu Attphys Sabas Yanez DO Attphys [phone] Justine Lopez MD Attphys Radhika MUNIZ, Bridgett Attphys Unavailable Alireza PARIS Attphys Unavailable Steph BELL, Augie Li Attphys [phone] YAMILE KELLY Admphys Unavailable Payers Payer Name Policy Type Policy Number Effective Date Expiration Date S [facility] MEDICAREAARP MEDICARE ADVANTAGE PLAN HMO-POS (WELLMED)[id number] 2019-PresentHMO [id number] 2019 00:00 :00 Demetris Schneider Problems Condition Name Condition Details Condition Category Status Onset Date Resolution Date Last Treatment Date Treating Clinician Comments Source Bacteremia Bacteremia Disease Active 2019-12-15 00:00:00 Demetris Schneider Chronic pain of both knees Chronic pain of both knees Disease Active 2019-04-05 00:00:00 Demetris diamond Primary osteoarthritis of knees, bilateral Primary ost eoarthritis of knees, bilateral Disease Active 2019-04-05 00:00:00 Arsenio Schneider Obesity (BMI 57.64) Obesity (BMI 57.64) Disease Active 2019-04-05 00:00 :00 Demetris Schneider ED (erectile dysfunction) ED (erectile dysfunction) Disease Ac tive 2018-07-22 00:00:00 Demetris diamond Hypogonadism in male Hypogonadism in male Disease Active 00:00:00 Demetris Schneider BPH with obstruction/lower urinary tract symptoms BPH with obstruction/lower urinary tract symptoms Disease Active 2018-07-22 00:00:00 Demetris Schneider Fever Fever Disease Active 2018-06-23 00:00:00 Demetris Schneider Dehydration Dehydration Disease Active 2018-06-22 00:00:00 Demetris Schneider Allergies, Adverse Reactions, Alerts Allergy Name Allergy Type Status Severity Reaction(s) Onset Date Inacti ve Date Treating Clinician Comments Source No Known Allergies DA Active U 2010-06-27 00:00:00 [facility] Family History Family Member Diagnosis Comments Start Date Stop Date Source Natural father Heart disease Demetris Schneider Natural father Stroke Demetris Il thodist Maternal grandfather Heart disease Carlito Schneider Paternal grandfather Heart disease H feliz Schneider Social History Social Habit Start Date Stop Date Quantity Comments Source History SDOH Alcohol Std Drinks Demetris Schneider History SDOH Alcohol Binge Demetris Schneider [facility] At [facility] Exposure to SARS-CoV-2 (event) Not sure Demetris Schneider Cigarettes smoked current (pack per day) - Reported 00:00:00 2020-02-23 00:00:00 Demetris Schneider Cigarette pack-years 2020-02-23 00:00:00 2020-02-23 00:00:00 Demetris Schneider Tobacco use and exposure 2020-02-23 00:00:00 2020-02-23 00:00:00 Gurwinder verma used Demetris Schneider Alcohol intake 2020-02-23 00:00:00 2020-02-23 00:00:00 Current non-drinker of alcohol (finding) Demetris Schneider History SDOH Alcohol Frequency 2018-06-22 00:00:00 2018-06-22 00:00:0 0 1 Demetris Schneider History of tobacco use 1982-01-24 00:00:00 2016-11-19 00:00:00 Curren t smoker Demetris Schneider Smoking Status Start Date Stop Date Source Former smoker 2020-02-23 00:00:00 2020-02-23 00:00:00 Demetris Schneider Medications Ordered Medication Name Filled Medication Name Start Date Stop Da te Current Medication? Ordering Clinician Indication Dosage Frequency Signature (SIG) Comments Components Source cetirizine (ZyrTEC) 10 MG tablet 2020-02-23 09:05:59 2020-02 00:00:00 No 10mg QD Take 10 mg by mouth daily. Demetris Schneider atorvastatin (LIPITOR) 20 mg tablet 2020-02-23 09:05:57 Yes 1 tablet Demetris Schneider DULoxetine (CYMBALTA) 60 MG capsule 2020-02-23 09:05:57 Yes 1 capsule Demetris Schneider topiramate (TOPAMAX) 50 MG tablet 2020-02-23 09:05:57 Yes 1 tablet Demetris Schneider metFORMIN (GLUCOPHAGE) 500 mg tablet 2020-02-23 09:05:56 Ye s 1 tablet with a meal Demetris Schneider metroNIDAZOLE (FLAGYL) 500 MG tablet 2020-02-10 00:00:00 Yes Demetris Schneider amoxicillin (AMOXIL) 500 MG capsule 2020-02-03 00:00:00 Yes Demetris Schneider lisinopriL (PRINIVIL) 20 mg tablet 2020-01-25 00:00:00 Yes Demetris Schneider HYDROcodone-acetaminophen (XODOL) 7.5-300 mg per tablet 2020-01-10 00:00:00 Yes 1{tbl} Take 1 tablet by mouth. Demetris Schneider topiramate (TOPAMAX) 25 MG tablet 2019-12-20 18:05:39 Yes 25mg QD Take 25 mg by mouth every evening. 25mg q am 50mg qhs Demetris Schneider atorvastatin (LIPITOR) 20 MG tablet 2019-12-20 18:05:39 Yes 20mg QD Take 20 mg by mouth daily. Default OP ins Raheem heavennile Schneider aspirin 325 MG tablet 2019-12-20 18:05:39 Yes 325mg QD Take 325 mg by mouth daily. Demetris Schneider furosemide (LASIX) 20 mg tablet 2019-12-20 18:05:39 Yes 40mg QD Take 40 mg by mouth daily. Demetris Schneider folic acid/mv,iron,min/lutein (ASSPPTZO-MQHU-ZLX-FA-LUTEIN O RAL) 2019-12-20 18:05:39 Yes 1{tbl} QD Take 1 tablet by mouth daily. Demetris Schneider lisinopriL (PRINIVIL) 5 mg tablet 2019-12-20 16:00:13 2019 00:00:00 No 5mg QD Take 5 mg by mouth daily. Demetris Schneider meropenem 1 g in sodium chloride 0.9 % MBP 100 mL IVPB 2019-12-20 00:00:00 2020-02-23 00:00:00 No 1g Q8H Infus e 1 g into a venous catheter every 8 (eight) hours. Demetris Schneider lisinopriL (PRINIVIL) 5 mg tablet 2019-12-20 00:00:00 2019 23:59:00 No 20mg QD Take 4 tablets (20 mg total) by mouth da alma for 30 days. Demetris Schneider lisinopril (PRINIVIL,ZESTRIL) 20 mg tablet 12-15 21:17:09 2019-12-16 00:00:00 No 20mg QD Take 20 mg by mouth daily. Demetris Schneider SACCHAROMYCES BOULARDII (PROBIOTIC, S.BOULARDII, ORAL) 2019-12-16 21:16:26 2019-12-16 00:00:00 No Take by mouth. Demetris Schneider potassium 99 mg tablet 2019-12-16 21:15:16 2019-12-16 00:00:00 No Take by mouth. Demetris Schneider CETIRIZINE HCL (ZYRTEC ORAL) 2019-12-16 21:14:54 2019-12-16 00:0 0:00 No Take by mouth. Demetris han traMADol (ULTRAM) 50 mg tablet 2019-12-16 21:14:45 2019-12-16 00 :00:00 No 50mg QD Take 50 mg by mouth daily. Carlito Schneider hydroCHLOROthiazide (HYDRODIURIL) 12.5 MG tablet 2019-12-16 21:14:08 2019-12-16 00:00:00 No 12.5mg QD Take 12.5 mg by mout h daily. Demetris Schneider doxycycline (VIBRAMYCIN) 100 MG capsule 00:00:00 2019-12-20 00:00:00 No 100mg Q.5D Take 1 capsule (100 mg total) by mouth 2 (two) times a day for 10 days. Demetris Schneider diclofenac (CATAFLAM) 50 MG tablet 2019-11-20 00:00:00 Yes Demetris Schneider atenoloL (TENORMIN) 50 MG tablet 2019-10-03 00:00:00 Yes 1 tablet Demetris Schneider potassium chloride (KLOR-CON) 20 mEq packet 2019-10-03 00:00:00 Yes 1 packet with food Demetris Schneider polyethylene glycol-electrolytes (NULYTELY) 420 gram solutio n 2019-09-27 00:00:00 Yes as directed Raheem Schneider atenolol (TENORMIN) 50 MG tablet 2019-02-07 00:00:00 Yes 50mg QD Take 50 mg by mouth daily. Demetris Schneider cyclobenzaprine (FLEXERIL) 10 mg tablet 00:00:00 2019-03-02 23:59:00 No 10mg Q.[id number] Ta ke 1 tablet (10 mg total) by mouth 3 (three) times a day as needed for muscle spasms for up to 30 days. Demetris Schneider lisinopril-hydrochlorothiazide (PRINZIDE) 20-12.5 mg per tab let 2019-01-30 00:00:00 2019-12-16 00:00:00 No Demetris Schneider potassium chloride 20 mEq tablet extended release 2019-01-10 00:00:00 Yes 1{tbl} QD Take 1 tablet by mouth daily. Demetris Schneider anastrozole (ARIMIDEX) 1 mg chemo tablet 2018-08 00:00:00 2019-03-08 23:59:00 No Hypogonadism in male 1mg QD Take 1 tablet (1 mg total) by mouth daily for 180 days. Demetris Schneider clomiPHENE (CLOMID) 50 mg tablet 2018-09-09 00:00:00 2019-02 23:59:00 No Hypogonadism in male 50mg QD Take 1 tablet (50 m g total) by mouth daily for 180 days. Demetris Schneider DULoxetine (CYMBALTA) 60 MG capsule 2018-03-08 00:00:00 Yes 60mg QD Take 60 mg by mouth daily. Demetris Schneider tiZANidine (ZANAFLEX) 4 MG tablet 2017-07-21 00:00:00 Yes 4mg Q.5D Take 4 mg by mouth 2 (two) times a day. Yanely Schneider furosemide (LASIX) 40 mg tablet 2016-12-30 00:00:00 00:00:00 No 60mg QD Take 60 mg by mouth daily. Demetris Schneider diclofenac (VOLTAREN) 50 MG EC tablet 2016-12-29 00:00:00 Y es 50mg Q.5D Take 50 mg by mouth 2 (two) times a day. Demetris Schneider LYRICA 200 mg capsule 2016-12-24 00:00:00 Yes 200mg Q.5D Take 200 mg by mouth 2 (two) times a day. Demetris elizalde Vital Signs Vital Name Observation Time Observation Value Comments Source Systolic blood pressure 2020-02-23 11:18:00 124 mm[Hg] Demetris Schneider Diastolic blood pressure 2020-02-23 11:18:00 88 mm[Hg] Demetris Schneider Heart rate 2020-02-23 11:18:00 78 /min Demetris Schneider Body height 2020-02-23 11:18:00 182.9 cm Demetris Schneider Body weight 2020-02-23 11:18:00 197.133 kg Demetris Schneider BMI 2020-02-23 11:18:00 58.94 kg/m2 Demetris Schneider Oxygen saturation in Arterial blood by Pulse oximetry 2019-04 11:18:00 97 /min Demetris Schneider Body temperature 2020-02-17 10:05:00 37.06 Jason Yanely Schneider Respiratory rate 2019-12-20 12:13:51 20 /min Yanely Schneider Procedures Procedure Date / Time Performed Performing Clinician Sourc e VENIPUNC NEED PHYS SKILL,DX OR RX 2019-12-20 12:15:21 Danae Sethi ECHOCARDIOGRAM TRANSESOPHAGEAL 2019-12-20 08:00:52 Enio Cervantes Demetris Schneider COVID-19 QUALITATIVE PCR 2019-12-18 15:28:00 Kanu Jaimes [facility] BLOOD CULTURE, AEROBIC & ANAEROBIC 2019-12-17 07:15:00 Roldan Kelly LACTIC ACID LEVEL 2019-12-17 07:15:00 Suzanne Carl URINE CULTURE 2019-12-16 17:10:00 Yamile Kelly ethodist URINALYSIS SCREEN AND MICROSCOPY, WITH REFLEX TO CULTURE 17:10:00 Yamile Kelly URINE CULTURE 2019-12-16 17:09:00 Saran Fowler PSA, ULTRASENSITIVE 2019-12-16 16:07:00 Yamile Kelly COMPREHENSIVE METABOLIC PANEL 2019-12-16 13:41:00 Yamile Kelly HC COMPLETE BLD COUNT W/AUTO DIFF 2019-12-16 13:41:00 Rich Kelly LACTIC ACID LEVEL 2019-12-16 13:41:00 Yamile Kelly ESTIMATED GFR 2019-12-16 13:41:00 Yamile Kelly ethodist AEROBIC CULTURE 2019-12-16 13:29:00 Yamile Kelly ethodist GRAM STAIN 2019-12-16 13:29:00 Yamile Kelly ethodist ANAEROBIC CULTURE 2019-12-16 12:00:00 Yamile Kelly TTE COMPLETE, WO CONTRAST, W DOPPLER ([id number]) 2019-12-16 09:0 8:[address] ABDOMEN PELVIS WO CONTRAST 2019-12-15 21:54:53 Yamile Kelly LACTIC ACID LEVEL, SEPSIS - NOW AND REPEAT 2X EVERY 3 HOURS 2019-12-15 19:33:00 Jose Carlos Enriquez LACTIC ACID LEVEL, SEPSIS - NOW AND REPEAT 2X EVERY 3 HOURS 2019-12-15 16:36:00 Jose Carlos Enriquez ECG 12-LEAD 2019-12-15 14:01:27 Jose Carlos Enriquez ethodist BLOOD CULTURE, AEROBIC & ANAEROBIC 2019-12-15 13:56:00 Nile Enriquez XR CHEST 1 VW PORTABLE 2019-12-15 13:52:13 Jose Carlos [facility]quezrose [facility] BLOOD CULTURE, AEROBIC & ANAEROBIC 2019-12-15 13:37:00 Nile Enriquez HC COMPLETE BLD COUNT W/AUTO DIFF 2019-12-15 13:28:00 Tamika Enriquez PROTHROMBIN TIME WITH INR 2019-12-15 13:28:00 Jose Carlos Enriquez COMPREHENSIVE METABOLIC PANEL 2019-12-15 13:28:00 Jose Carlos Enriquez TROPONIN 2019-12-15 13:28:00 Jose Carlos Enriquez ethodist B NATRIURETIC PEPTIDE 2019-12-15 13:28:00 Jose Carlos Enriquez [facility] ESTIMATED GFR 2019-12-15 13:28:00 Jose Carlos Enriquez ethodi LACTIC ACID LEVEL, SEPSIS - NOW AND REPEAT 2X EVERY 3 HOURS 2019-12-15 13:28:00 Jose Carlos Enriquez MS CRITICAL CARE, E/M 30-74 MINUTES 2019-12-15 13:20:54 Jose Carlos Enriquez ECG ED PRELIMINARY INTERPRETATION 2019-12-15 13:20:54 Tamika Enriquez URINE CULTURE 2019-12-14 15:41:00 Madeline Yanez URINALYSIS SCREEN AND MICROSCOPY, WITH REFLEX TO CULTURE 15:40:00 Madeline Yanez LACTIC ACID LEVEL, SEPSIS - NOW AND REPEAT 2X EVERY 3 HOURS 2019-12-14 15:30:00 Madeline Yanez INFLUENZA ANTIGEN TEST, REFLEX NEGATIVE TO RPP 2019-12-14 14 :28:00 Madeline Yanez COVID-19 QUALITATIVE PCR 2019-12-14 14:28:00 Madeline Yanez RESPIRATORY PATHOGEN PANEL 2019-12-14 14:28:00 Madeline Yanez BLOOD CULTURE, AEROBIC & ANAEROBIC 2019-12-14 13:55:00 Alice Yanez HC COMPLETE BLD COUNT W/AUTO DIFF 2019-12-14 13:55:00 Zita Yanez COMPREHENSIVE METABOLIC PANEL 2019-12-14 13:55:00 Madeline Yanez LACTIC ACID LEVEL, SEPSIS - NOW AND REPEAT 2X EVERY 3 HOURS 2019-12-14 13:55:00 Madeline Yanez ESTIMATED GFR 2019-12-14 13:55:00 Madeline Yanez BLOOD CULTURE, AEROBIC & ANAEROBIC 2019-12-14 13:50:00 Alice Yanez ESTRADIOL LEVEL 2019-11-15 16:57:00 Gasper Lopez HEMOGLOBIN & HEMATOCRIT 2019-11-15 16:57:00 Gasper Lopez HEPATIC FUNCTION PANEL 2019-11-15 16:57:00 Gasper Lopez [facility] [place] [facility] TESTOSTERONE 2019-11-15 16:57:00 Gasper Lopez XR KNEE 4+ VW BILATERAL 2019-04-05 16:02:22 Guillermo Choi XR LEG LENGTH EVALUATION 2019-04-05 16:02:13 Guillermo Choi hik Demetris Schneider MS ARTHROCENTESIS ASPIR&/INJ MAJOR JT/BURSA W/O 2019-03-20 7 15:45:00 Guillermo Choi Plan of Care Planned Activity Planned Date Details Comments Source Future Scheduled Test 2019-11-19 00:00:00 INFLUENZA VACCINE [code = INFLUENZA VACCINE] Demetris Schneider Future Scheduled Test 2013-08-02 00:00:00 COLONOSCOPY SCREEN ING [code = COLONOSCOPY SCREENING] Demetris Schneider Future Scheduled Test 2013-08-02 00:00:00 SHINGLES VACCINES (#1) [code = SHINGLES VACCINES (#1)] [facility] Encounters Start Date/Time End Date/Time Encounter Type Admission Type [facility] Care Department Encounter ID Source 2020-02-23 00:00:2020-02-23 00:00:00 Outpatient SIR RIVERA SHEN [facility] [id number] [facility] 2020-02-17 00:00:00 2020-02-17 00:00:00 Outpatient TIGRE ATBOR [facility] [id number] [facility] 2019-12-15 00:00:00 2019-12-20 00:00:00 Inpatient YAMILE KELLY 064 [id number] [facility] 2019-12-14 00:00:00 2019-12-14 00:00:00 Emergency MADELINE YANEZ [facility] 064 [id number] [facility] 2019-11-17 00:00:00 2019-11-17 00:00:00 Outpatient WAQAS LOPEZ [facility] [id number] [facility] 2019-11-15 00:00:00 2019-11-15 00:00:00 Outpatient WAQAS LOPEZ [facility] [id number] [facility] Results Test Description Test Time Test Comments Results Result Comments Source ECG 12 lead 2020-01-27 22:50:13 Test Item Ventricular rate (test code = 253) 90 Atrial rate (test code = 255) 90 MS interval (test code = 266) 166 QRSD interval (test code = 260) 80 QT interval (test code = 264) 334 QTC interval (test code = 265) 408 P axis 1 (test code = 267) 58 QRS axis 1 (test code = 268) 62 T wave axis (test code = 270) 55 EKG impression (test code = 273) Normal sinus rhythm-N ormal ECG-In automated comparison with ECG of 15-DEC-2019 14:00,-No significant change was found- Demetris SchneiderBlood culture, aerobic & [id number] 09:33:04* Test Item Value Reference Range Interpretation Comments Blood culture isolate (test code = 600-7) No growth after 5 days of incubation. Specimen InformationSpecimen Source: BloodSpecimen Site: Unspecified [facility] Chandrika, [id number] 15:15:31* Test Item Value Reference Range Interpretation Comments PSA, ultrasensitive (test code = 36708-4) 0.18 ng/mL 0-4 INTERPRETIVE INFORMATION: PSA Ultra SensitiveAfter radical prostatectomy, the reference interval is less than 0.05 ng/mL if there is no residual disease. In healthy males without prostatectomy, the reference interval is 4.00 ng/mL or less. The lower limit of detection is 0.01 ng/mL.The Ernie PSA electrochemiluminescent immunoassay was used. Results [...] in healthy men or men with nonprostatic carcinoma.Performed By: [facility] [place] [address] [id number] Director: Sarah Good MD [facility] NEED PHYS SKILL,DX OR [id number] 12:15:21Lizzie Sethi RN 12/20/2019 12:20 PMMidlineDate/Time: 12/20/2019 12:15 PMPerformed by: Lizzie Sethi, RNAuthorized by: Yamile Kelly MD Consent: Consent obtained: Verbal and written Consent given by: Patient Risks discussed: Arterial puncture, incorrect placement, nerve damage, bleeding, infection, super ficial thrombus and deep vein thrombus Alternatives discussed: Alternative delfina atment and delayed treatmentUniversal protocol: Procedure explained and questi ons answered to patient or proxy's satisfaction: yes Relevant documents prese nt and verified: yes Test results available and properly labeled: yes Imag ing studies available: yes Required blood products, implants, devices, and sp ecial equipment available: yes Site/side marked: yes Immediately prior to procedure, a time out was called: yes Patient identity confirmed: Verbally w ith patient, arm band and hospital-assigned identification numberPre-procedure d etails: Hand hygiene: Hand hygiene performed prior to insertion Sterile bar rier technique: All elements of maximal sterile technique followed Skin prepa ration: ChloraPrep Skin preparation agent: Dried prior to procedure Anesthesi a (see MAR for exact dosages): Anesthesia method: Local infiltration Local a nesthetic: Lidocaine 1% w/o epi Route administered: SubcutaneousMidLine Place ment Details (Will create an LDA): Extremity Circumference Upper (cm): 38 Ex tremity Circumference Forearm (cm): 23 Extremity Circumference Site: 35 Ava ent position: Flat Indication: Known retirement IV therapy Location: Left ce phalic Site selection rationale: Pt request Device Type: Non-valved Cathete r Lumen(s): Single lumen Catheter size: 4 Fr Catheter to vein ratio: 15%Mid Line Characteristics: Catheter Brand: NewsFixed POWER GLIDE PRO MIDLINE CATHETER External Catheter Length (cm): 0 Internal Catheter Length (cm): 10 Total Cat heter Length (cm): 10 Catheter Lot Number: [id number] Catheter Expiration Date : 06/17/2020 Micro-Introducer Lot Number: [id number] Micro-Introducer Expiratio n Date: 1Procedure details: Landmarks identified: yes Ultrasound g uidance: yes Sterile ultrasound techniques: Sterile gel and sterile probe cov ers were used Number of attempts: 1 Number of MidLine kits used during proc edure: 1 Extra guide wire required?: No Purpose of procedure: Midline Plac ement Patency/Placement: Flushes without difficulty, flushed with 10 mL normal saline, positive blood return and injection cap placed MidLine placed utilizing ultrasound-guided Modified Seldinger Technique: Yes Dressing/Securement: C atheter securement device and antimicrobial dressing applied Blood Loss Amount: Less than 20 mLPost-procedure details: Post-procedure: Dressing applied Na me of provider who confirmed tip placement:: Lizzie Sethi RN, [place]-BC, PICC team used USG to place catheter to left cephalic vein and used ultrasound to take a picture of the wire in the vein. Patient tolerance of procedure: Tolerated wel l, no immediate complicationsComments: Taught pt not to use left arm with lif ting, pulling, gentle movements only. Keep clean and dry. Wrap for showering. Pt verbalized understanding. Report to Leo Arenas RN, primary nurse. [facility] MethodistEchocardiogram [id number] 09:37:50* Test Item Value Reference Range Interpretation Comments MAX Pred HR (test code = 4698934126) 163.62 85 of MPHR (test code = 3709031619) 139.08 Calc MPHR (test code = 0792104913) 163.62 bpm Pred Exer Dur R1 (test code = 8803272601) 9.26 Pred METS R1 (test code = 4322246480) 9.54 BSA (test code = 1116910284) 3.16 m2 SOLA (test code = SOLA) Left ventricular systolic function is normal. There is mild left ventricular concentric hypertrophy. Left Ventricular ejection fraction is 60 - 65%. Left atrium size is moderately dilated. There is mild sclerosis of the aortic valve leaflets. There is gjif-jb-[id number] mitral valve regurgitation. No evidence of endocarditis [facility] MethodistAnaerobic [id number] 09:21:41* Test Item Value Reference Range Interpretation Comments Anaerobic culture isolate (test code = 552) No anaerobic organis ms isolated. Specimen InformationSpecimen Source: Wou ndSpecimen Site[facility] Methodist[facility] [id number] 01:20:35* Test Item Value Reference Range Interpretation Comments Gram stain isolate (test code = 1469) No WBC's or organisms seen. Specimen InformationSpecimen Source: WoundSpecimen Site: [facility] MethodistCOVID-19 qualitative [id number] 20:53:14* Test Item Value Reference Range Interpretation Comments Interpretation (test code = 3616661) Negative results do not preclude 2019-nCoV infection and should not be used as the sole basis for treatment or other patient management decisions. Negative results must be combined with clinical observations, patient history, and epidemiological information. COVID-19 qualitative PCR result (test code = 99314-7) Not-Detect ed Not-Detected COVID-19 qualitative PCR (test code = 7070) See link below for P DF Lab Report [facility] MethodistLactic acid [id number] 07:27:16* Test Item Value Reference Range Interpretation Comments Lactic acid (test code = 23617-2) 1.0 mmol/L 0.5-2.2 [facility] MethodistTransthoracic Echocardiogram Complete, (w Contrast, Strain and 3D if needed)2019-12-16 18:36:08* Test Item Value Reference Range Interpretation Comments AoV Mean PG (test code = 7516385768) 5.27 mmHg AoV Peak PG (test code = 4029518187) 8.72 mmHg AoV Vmax (test code = 5303749151) 1.58 m/s AoV VTI (test code = 6562329015) 0.29 m BSA Torres (test code = 0959822186) 3.66 m2 BSA (test code = 9550782445) 3.35 m2 IVS,d (test code = 2486521818) 1.47 cm IVS/LVPW,2D (test code = 2526394282) 1.65 LV,d (test code = 8499922191) 5.16 cm LV EF,2D (test code = 8010453507) 63.91 % LV,s (test code = 3139438867) 3.68 cm LVOT Vmax (test code = 1115127494) 1.14 m/s LVOT VTI (test code = 6293781953) 0.19 m LVPWD,d (test code = 7948301711) 0.89 cm TR Vpeak (test code = 3534994586) 2.57 mm/s MV E A ratio (test code = 3900777577) 1.12 TR pk grad (test code = 1037945116) 26.41 mmHg BMI (test code = 6069512100) 61.43 kg/m2 E wave decelartion time (test code = 8994825097) 174.20 msec MV Peak A Jacob (test code = 4636767710) 0.92 m/s MV valve area p 1/2 method (test code = 7688467981) 6.04 cm2 MV Peak E Jacob (test code = 7248756472) 1.15 m/s MV stenosis pressure 1/2 time (test code = 2806275713) 36.45 ms AV LVOT peak gradient (test code = 1708734495) 5.14 mmHg MV mean gradient (test code = 0674778417) 2.65 mmHg LV SYS VOL (test code = 4032353070) 57.28 ml LV CHRISTOPHER VOL (test code = 9115747026) 127.49 ml LV SI Teich 2D (test code = 7913635605) 20.95 ml/m2 LV SV Teich 2D (test code = 7092727989) 70.21 ml LV Vol s Teich PSAX (test code = 3277871085) 57.28 ml MR peak grad (test code = 0833481596) 5.51 mmHg MV Vmax (test code = 7582069792) 1.17 m MV VTI Tips (test code = 7971153501) 0.23 m BSA Haycock (test code = 5970057560) 3.70 m2 AoV Vmn (test code = 6448840630) 1.06 IVS s 2D (test code = 4925291888) 1.15 LV FS Teich 2D (test code = 0373757582) 28.80 MV AE ratio (test code = 8044216333) 0.89 LV FS Cube 2D (test code = 5609734555) 28.80 LVOT Vmn (test code = 0632056899) 0.72 Pt Size (test code = 9111482033) 195.58 Pt Wt (test code = 8335387510) 234.96 LVOT mean grad (test code = 4813010687) 2.40 mmHg MAX Pred HR (test code = 1698633351) 163.63 85 of MPHR (test code = 4941272165) 139.09 Calc MPHR (test code = 3095928170) 163.63 bpm IVS pct thck PLAX (test code = 8692158905) -21.49 % LV SI Cube 2D (test code = 5171031591) 26.27 ml/m2 LV SV Cube 2D (test code = 0467870809) 88.05 ml LV vol d cube 2D (test code = 4444307693) 137.78 ml LV vol s cube 2D (test code = 0043291209) 49.73 ml LVPW pct thck PLAX (test code = 1193727324) 86.46 % LVPW s PLAX (test code = 7017675254) 1.66 cm MV Decel slope (test code = 5436174814) 6.59 m/s2 Pred Exer Dur R1 (test code = 4382084415) 9.26 Pred METS R1 (test code = 2498310399) 9.54 Velocity Ratio (V1/V2) (test code = 4689) 0.72 m/s EF (test code = 5834736110) 55.07 % E/A ratio (test code = 4692235976) 1.25 SOLA (test code = SOLA) Left ventricular systolic function is normal. There is mild left ventricular concentric hypertrophy. Left Ventricular ejection fraction is 60 - 65%. Left atrium size is moderately dilated. Spectral Doppler shows pseudonormal pattern of left ventricular diastolic filling. Morbid obesity. TDS. Poor visualiztion of cardiac valves. Unable to rule out endocarditis on this study. Recommend CECILIA, is clinically indicated. [facility] MethodistUrinalysis screen and microscopy, with reflex to culture 2019-12-16 18:10:55* Test Item Value Reference Range Interpretation Comments Specimen site (test code = 2320203) Clean catch Color, UA (test code = 5778-6) Yellow Appearance, UA (test code = 5767-9) Clear Specific gravity, UA (test code = 5811-5) 1.031 1.001-1.035 pH, UA (test code = 5803-2) 5.0 5.0-8.5 Protein, UA (test code = 44904-4) 2+ Negative A Glucose, UA (test code = 76853-8) Negative Negative Ketones, UA (test code = 2514-8) Negative Negative Bilirubin, UA (test code = 5770-3) Negative Negative Blood, UA (test code = 5794-3) Negative Negative Nitrite, UA (test code = 5802-4) Negative Negative Urobilinogen, UA (test code = 56985-9) 4.0 <2.0 A Leukocyte esterase, UA (test code = 5799-2) Negative Negative Epithelial cells, UA (test code = 5787-7) Few /HPF WBC, UA (test code = 5821-4) 2 0- 1 /HPF RBC, UA (test code = 18532-2) 2 0- 5 /HPF Bacteria, UA (test code = 75469-5) None seen None seen Yeast, UA (test code = 21393-7) None seen Yeast with pseudohyphae, UA (test code = 42631-0) None seen Lab Interpretation (test code = 01124-3) Abnormal [facility] MethodistUrine vhvglhd3067-66-66 18:08:58* Test Item Value Reference Range Interpretation Comments Urine culture (test code = 7418599) SEE COMMENT Bacteriuria screen negative. [facility] MethodistComprehensive metabolic [id number] 14:30:27* Test Item Value Reference Range Interpretation Comments Sodium (test code = 2951-2) 136 135- 150 mEq/L Potassium (test code = 2823-3) 4.1 3.5- 5.0 mEq/L Chloride (test code = 2075-0) 101 98- 112 mEq/L CO2 (test code = 2027-9) 23 mmol/L 24-31 L Anion gap (test code = 26622-4) 12@ANIO 7- 15 mEq/L BUN (test code = 3094-0) 17 mg/dL 7-18 Creatinine (test code = 2160-0) 1.00 mg/dL 0.7-1.2 Glucose (test code = 2345-7) 203 mg/dL 65-100 H Calcium (test code = 53476-9) 8.2 mg/dL 8.3-10.2 L Protein (test code = 2885-2) 6.1 g/dL 6.3-8.3 L Albumin (test code = 1751-7) 3.0 g/dL 3.5-5 L A/G ratio (test code = 1759-0) 1.0 0.7-3.8 Alkaline phosphatase (test code = 6768-6) 62 U/L 0-129 AST (test code = 1920-8) 28 U/L 10-50 ALT (test code = 1742-6) 24 U/L 5-50 Total bilirubin (test code = 1974-2) 0.5 mg/dL 0.2-1.2 Lab Interpretation (test code = 45110-8) Abnormal [facility] MethodistEstimated [id number] 14:30:27* Test Item Value Reference Range Interpretation Comments Estimated GFR (test code = 5488) 84 mL/min/1.73 m2 Catergory Units InterpretationG1 >=90 Normal or highG2 60-89 Mildly howhwvojuQ4z 45-59 Mildly to moderately kflnypkomJ0h 30-44 Moderately to severely decreasedG4 15-29 Severely decreasedG5 <15 Kidney failureThe eGFR was calculated using the Chronic Kidney Disease Epidemiology Collaboration (CKD-EPI) equation. Interpretation is based on recommendations of the National Kidney Foundation-Kidney Disease Outcomes Quality Initiative (NKF-KDOQI) published in 2014. [facility] MethodistCBC with platelet and rxctenolijqt2003-24-42 14:16:30* Test Item Value Reference Range Interpretation Comments WBC (test code = 44453-6) 5.4 4.2- 11.0 k/uL RBC (test code = 64466-0) 4.16 m/uL 4.04-5.86 HGB (test code = 718-7) 11.0 g/dL 13-17.3 L HCT (test code = 4544-3) 36.0 % 34-45 MCV (test code = 787-2) 86.5 fL 80-98 MCH (test code = 785-6) 26.4 pg 27-34 L MCHC (test code = 786-4) 30.6 g/dL 31.5-36.5 L RDW - SD (test code = 19166-4) 49.6 fL 37-51 MPV (test code = 76136-6) 12.0 fL 7.4-10.4 H Platelet count (test code = 00710-7) 125 150- 400 k/uL L Nucleated RBC (test code = 57012-6) 0.00 /100 WBC Neutrophils (test code = 21608-9) 66.5 % 36-66 H Lymphocytes (test code = 88686-7) 19.5 % 24-44 L Monocytes (test code = 85943-2) 13.6 % 0-6 H Eosinophils (test code = 17521-6) 0.0 % 0-6 Basophils (test code = 88836-2) 0.0 % 0-1.2 Immature granulocytes (test code = 42302-6) 0.4 % 0-1 Lab Interpretation (test code = 96351-7) Abnormal [facility] MethodistCT Abdomen Pelvis Wo Nwhuehhl2098-87-25 22:05:54Hm Interface, Radiology Results 12/15/2019 10:08 PM CDTExamination: CT ABDOMEN PELVIS WO CONTRASTClinical History: Abd pain unspecifiedComparison: None.Findings:CT scans are performed using radiation dose reduction techniques. Technical factors are evaluated and adjusted to ensure appropriate moderation of exposure. Automated dose management technology is applied to adjust radiation exposure while achieving a diagnostic quality image. CT imaging was performed w ith iterative reconstruction techniques and/or automated exposure control to red uce radiation dose.CT scan of abdomen and pelvis was performed without intraveno us contrast.The liver is diffusely low in density. The spleen, pancreas, gallbla dder, and adrenal glands are unremarkable.The kidneys are slightly atrophic but no hydronephrosis or urinary calculus is seen.Scattered colonic diverticuli are noted. No bowel thickening or fat stranding is seen. No bowel dilatation is seen .No free air or fluid is seen. Urinary bladder is unremarkable.The visualized anju ng bases are clear.IMPRESSION:1. Fatty liver.2. Colonic diverticulosis without e vidence of inflammation.3. Otherwise no acute abnormality identified in the abdo men or pelvis.[id number] MethodistLactic acid level, SEPSIS - Now and repeat 2x every 3 unljr6760-18-69 19:52:04* Test Item Value Reference Range Interpretation Comments Lactic acid (test code = 83422-1) 1.9 mmol/L 0.5-2.2 [facility]fx[facility]ti[facility]lbk0769-49-78 14:32:11* Test Item Value Reference Range Interpretation Comments Troponin (test code = 50957-6) 0.011 ng/mL 0-0.04 In patients suspected of having a myocardial infarction, along with all other appropriate clinical measures and actions including ECG and other diagnostics as appropriate, measure Ultra TnI at 0 hrs and at 3 hrs.Myocardial infarction VERY LIKELYThe 0 hr TnI level is > 0.10 ng/mL Jason cardial infarction LIKELYThe 0 hr TnI level is > 0.04 ng/mL and 3 hr level is increased or decreased by at least 0.020 ng/mL Myocardi al infarction VERY UNLIKELYBoth the 0 hr and 3 hr TnI levels <= 0.04 ng/mL(within normal limits) OR 0 hr is > 0.04 ng/mL and 3 hr is increased OR decreased by less than 0.020 ng/mL [facility] MethodistB natriuretic geiooan8995-71-80 14:31:41* Test Item Value Reference Range Interpretation Comments BNP (test code = 26513-4) 57 pg/mL 0-100 [facility] MethodistProthrombin time with ASM9442-14-41 14:25:17* Test Item Value Reference Range Interpretation Comments Prothrombin time (test code = 5902-2) 15.2 11.5- 14.5 sec H INR (test code = 94311-4) 1.19 Fo r patients on anticoagulant therapy, reference ranges below:Indication: INR ValueTreatment of Venous Thrombosis, 2.0-3.0pulmonary emboli, or prophylaxisof a venous thrombosis, or systemic emboli.High dose, high risk patients 3.0-4.5with mechanical valves.NOTE: INR values over 3.0 are sometimes associated withgastrointestinal hemorrhage, especially values over 4.0. Lab Interpretation (test code = 59177-1) Abnormal [facility] MethodistXR Chest 1 Vw Jlkmnuky1256-39-00 13:54:02Hm Interface, Radiology Results - 12/15/2019 1:57 PM CDTEXAMINATION: XR CHEST 1 VW PORTABLECLINICAL HISTORY: chest painCOMPARISON: To a previous examination from 01/21/2019IMPRESSION:The cardiomediastinal silhouette is normal in appearance.The lungs are clear. There is no evidence of consolidation, congestion, or pneumothorax.A pleural effusion is not present.Visualized skeletal structures demonstrate no definite abnormality.Negative examination.[facility]-[id number] MethodistCRITICAL [id number] 13:20:54Jose Carlos Enriquez MD 12/15/2019 2:40 PMCritical CarePerformed by: Jose Carlos Enriquez MDAuthorized by: Jose Carlos Enriquez MD Critical care provider statement: Critical care time (minutes): 45 Critical care time was exclusive of: Separately billable procedures and treating other patients Critical care was time spent personally by me on the following activities: Development of treatment plan with patient or surrogate, discussions with primary provider, evaluation of patient's response to treatment, examination of patient, obtaining history from patient or surrogate, re-evaluation of patient's condition, pulse oximetry, ordering and review of radiographic studies, ordering and review of laboratory studies and ordering and performing treatments and interventions Nain 'yes' if you are taking over critical care for this patient from another provider.: no [facility] Preliminary Interpretation - Not an Vfysm6763-52-64 13:20:54 Jose Carlos Enriquez MD 12/15/2019 2:40 [facility] Preliminary Interpretation - Not an OrderPerformed by: Jose Carlos Enriquez MDAuthorized by: Jose Carlos Enriquez MD ECG reviewed by ED Physician in the absence of a precinct i police sergeant: yes Prev ious ECG: Previous ECG: Compared to currentInterpretation: Interpretation: normal Rate: ECG rate: 90 ECG rate assessment: normal Rhythm: Rhythm: si nus rhythm Ectopy: Ectopy: none QRS: QRS axis: NormalConduction: Conduc tion: normal ST segments: ST segments: NormalT waves: T waves: normal [facility] MethodistRespiratory pathogen ciwpi5085-55-53 20:30:03* Test Item Value Reference Range Interpretation Comments Adenovirus PCR (test code = 7092) Not Detected Specimen InformationSpecimen Source: NaresSpecimen Site: Right Coronavirus HKU1 PCR (test code = 7093) Not Detected Coronavirus NL63 PCR (test code = 7094) Not Detected Coronavirus 229E PCR (test code = 7095) Not Detected Coronavirus OC43 PCR (test code = 7096) Not Detected Human metapneumovirus PCR (test code = 7097) Not Detected Human rhinovirus/enterovirus PCR (test code = 7098) Not Detected Influenza A PCR (test code = 7099) Not Detected Influenza A/H1 PCR (test code = 7100) Not Reported Influenza A/H3 PCR (test code = 7102) Not Reported Influenza A/H1-2009 PCR (test code = 7101) Not Reported Influenza B PCR (test code = 7104) Not Detected Parainfluenza virus 1 PCR (test code = 7105) Not Detected Parainfluenza virus 2 PCR (test code = 7106) Not Detected Parainfluenza virus 3 PCR (test code = 7107) Not Detected Parainfluenza virus 4 PCR (test code = 7108) Not Detected Respiratory syncytial virus PCR (test code = 7109) Not Detected Bordetella pertussis PCR (test code = 8507396) Not Detected Bordetella parapertussis PCR (test code = 5338436) Not Detected Chlamydia pneumoniae PCR (test code = 3753) Not Detected Mycoplasma pneumoniae PCR (test code = 7110) Not Detected Influenza A no sub type PCR (test code = 7127) Not Reported [facility] MethodistInfluenza antigen test, reflex negative to [id number] 20:27:52* Test Item Value Reference Range Interpretation Comments Influenza antigen (test code = 43489-1) Negative for Influenza A/B antigen. Specimen InformationSpecimen Source: NaresSpecimen Site: Right [facility] MethodistHepatic function [id number] 01:34:00* Test Item Value Reference Range Interpretation Comments Protein (test code = 2885-2) 6.0 g/dL 6.1-8.1 L Albumin, S (test code = 1751-7) 3.8 g/dL 3.6-5.1 Globulin, total (test code = 49199-3) 2.2 1.9- 3.7 g/dL (c alc) Albumin/globulin ratio (test code = 1759-0) 1.7 1.0- 2.5 ( calc) Total bilirubin (test code = 1974-) 0.4 mg/dL 0.2-1.2 Bilirubin direct (test code = 1967-) 0.1 mg/dL < OR = 0.2 Bilirubin, indirect (test code = 1970-) 0.3 0.2- 1.2 mg/d L (calc) Alkaline phosphatase (test code = 6768-6) 86 U/L 35-144 AST (test code = 1920-8) 18 U/L 10-35 ALT (test code = 1742-6) 21 U/L 9-46 RAC (test code = RAC) Performing Organization Info rmation: Site ID: RGA Name: [facility] Address: [address] [place] [phone] Director: Kailash Torres Lab Interpretation (test code = 94714-6) Abnormal [facility] EpswkvlanTztuugjudvry5678-26-25 01:34:00* Test Item Value Reference Range Interpretation Comments Testosterone, total, lc/ms/ms (test code = 2986-8) 203 ng/dL 250 -1100 L Men with clinically significant hypogonadal symptoms and testosterone values repeatedly in the range(Note)For additional information, please refer tohttp://education.[employer]/faq/TotalTestosteroneLCMSMS(This link is being provided for informational/educational purposesonly.)This test was developed and its analytical performancecharacteristics have been determined by [employer]. It has notbeen cleared or approved by the FDA. This assay has been validatedpursuant to the CLIA regulations and is used for clinical purposes. [facility] [id number] [place] [address],[address] [place] [address] [phone] SHANNA Valdes (test code = SHANNA) Performing Organization Info rmation: Site ID: [id number] Name: [facility] Address: [address] [place] [address], [address] [place] [phone] Director: Pavan Neumann MD Lab Interpretation (test code = 23713-5) Abnormal [facility] MethodistEstradiol eizmo7919-60-97 01:34:00* Test Item Value Reference Range Interpretation Comments Estradiol (test code = 2243-4) 26 pg/mL < OR = 39 Reference range established on post-pubertal patientpopulation. No pre-pubertal reference rangeestablished using this assay. For any patients forwhom low Estradiol levels are anticipated (e.g. males,pre-pubertal children and hypogonadal/post-menopausal females), the [facility] InstituteEstradiol, Ultrasensitive, LCMSMS assay is recommended(order code 69968). Please note: patients being treated with the drug fulvestrant (Faslodex(R)) have demonstrated significant interference in immunoassay methods for estradiol measurement. The cross reactivity could lead to falsely elevated estradiol test results leading to an inappropriate clinical assessment of estrogen status.Trov order code 77224-Tkstkfarc, Ultrasensitive LC/MS/MS demonstrates negligible cross reactivity with fu lvestrant. SHANNA (test code = SHANNA) Performing Organization Info rmation: Site ID: RGA Name: [facility] Address: [address] [place] [phone] Director: Kailash Torres [facility] MethodistHemoglobin & gboaikctro1141-10-55 01:34:00* Test Item Value Reference Range Interpretation Comments HGB (test code = 718-7) 12.6 g/dL 13.2-17.1 L HCT (test code = 4544-3) 38.9 % 38.5-50 RAC (test code = RAC) Performing Organization Info rmation: Site ID: RGA Name: [facility] Address: [address] [place], [place] [id number] Director: Kailash Torres Lab Interpretation (test code = 62311-8) [facility] [place],[id number] 12:51:00 RUN DATE: 09/02/19 [facility] PAGE 1 RUN TIME: 1251 Specimen Inqui ry RUN USER: INTERFACE PATIENT: JUAN F PENA ACCT #: [id number] [facility] #: [id number] AGE/SX: 54/M ROOM: [place] [address] RE08/25/19REG DR: Waqar Pickett : 61 BED: A DIS: 09/01/19 STATUS: DIS IN TLOC: SPEC #: [id number] RECD: 09/01/19 STATUS: SIVA BARTLETT #: [id number] AMISHA: 09/01/19 [facility] DR: Devon Zamudio MD ENTERED: 09/01/19 SP TYPE: BX GASTRIC OTHR DR: Jocelyn koch or Family Physician Maria Gonzales MD,Devon Suarez MD, MDORDERED: PATHGM4, SPEC STAIN I, # OF BLOCKS, # OF SLIDES/3 TISSUES: A. GASTRIC BIOPSY - ANTRAL B IOPSY CLINICAL HISTORY BILE GASTRITIS, ANTRAL EROSIONS, ESOPHAGITIS. FINAL MICROSCOPIC DIAGNOSIS STOMACH, ANTRUM, BIOPSY: - ANTRAL MUCOSA (SUPERFICIAL FRAGMENT) WITH FOVEOLAR HYPERPLASIA - NEGATIVE FOR HELICOBA CTER PYLORI BY SPECIAL STAIN - NO INTESTINAL METAPLASIA, DYSPLASIA OR MAL IGNANCY IS IDENTIFIED CPT 14664, 34807 GROSS DESCRIPTION In form shivani, labeled with the patient's name, medical record number, and "antrum biop sy" are two pink-cope fragments of soft tissue measuring 0.3 cm and 0.5 cm in g reateset dimension. The specimen is entirely submitted in cassette A1. MORRO/LYLE/trae Signed SIGNATURE ON FILE Mercedez Cordon 09/02/19 1251 END OF REPORT [id number] 12:35:00* Test Item Value Reference Range Interpretation Comments GLUBED (test code = GLUBED) 119 MG/DL 74-106 H [id number] 06:39:00* Test Item Value Reference Range Interpretation Comments GLUBED (test code = GLUBED) 126 MG/DL 74-106 H [id number] 05:59:00* Test Item Value Reference Range Interpretation Comments GLUBED (test code = GLUBED) 190 MG/DL 74-106 H [id number] 20:48:00* Test Item Value Reference Range Interpretation Comments GLUBED (test code = GLUBED) 145 MG/DL 74-106 H [id number] 16:51:00* Test Item Value Reference Range Interpretation Comments GLUBED (test code = GLUBED) 63 MG/DL 74-106 L [id number] 12:52:00* Test Item Value Reference Range Interpretation Comments GLUBED (test code = GLUBED) 141 MG/DL 74-106 H [id number] 05:25:00* Test Item Value Reference Range Interpretation Comments GLUBED (test code = GLUBED) 133 MG/DL 74-106 H COMPREHENSIVE METABOLIC [id number] 03:46:00* Test Item Value Reference Range Interpretation Comments SODIUM (test code = NA) 136 mmol/L 137-145 L POTASSIUM (test code = K) 3.7 mmol/L 3.4-5.0 N CHLORIDE (test code = CL) 104 mmol/L 98-107 N CARBON DIOXIDE (test code = CO2) 25 mmol/L 22-30 N GLUCOSE (test code = GLU) 173 mg/dL 74-106 H BLOOD UREA NITROGEN (test code = BUN) 11 mg/dL 9-20 N GLOMERULAR FILTRATION RATE (test code = GFR) 124 >60 The estimated glomerular filtration rate is computed usingpatient race, age (>18), sex, and serum creatinine. If anyof the needed data elements are missing the Laboratory cannot compute an estimation of the glomerular filtration rate. CREATININE (test code = CREAT) 0.7 mg/dL 0.7-1.3 N TOTAL PROTEIN (test code = PROT) 5.8 g/dL 6.3-8.2 L ALBUMIN (test code = ALB) 3.3 g/dL 3.5-5.0 L CALCIUM (test code = CA) 8.4 mg/dL 8.4-10.2 N BILIRUBIN TOTAL (test code = BILT) 0.3 mg/dL 0.2-1.3 N BILIRUBIN CONJUGATED (test code = BILCON) 0 mg/dL 0-0.3 N ~~~~~~~~~~~~~~~~~~~~~~~~~~~~~~~~~~~~~~~~~~~~~~~~~~~~~~~~~~~~CONJUGATED BILIRUBIN IS THE REPLACEMENT ASSAY FOR DIRECTBILIRUBIN.~~~~~~~~~~~~~~~~~~~~~~~~~~~~~~~~~~~~~~~~~~~~~~~~~~~~~~~~~~~~ BILIRUBIN UNCONJUGATED (test code = BILUNC) 0.1 mg/dL 0-1.1 N SGOT/AST (test code = AST) 28 U/L 15-46 N SGPT/ALT (test code = ALT) 43 U/L 13-69 N ALKALINE PHOSPHATASE (test code = ALKP) 98 U/L 38-126 N CBC W/AUTO [id number] 03:28:00* Test Item Value Reference Range Interpretation Comments WHITE BLOOD CELL (test code = WBC) 7.3 x10 3/uL 5.0-12.0 N RED BLOOD CELL (test code = RBC) 4.19 x10 6/uL 4.70-6.10 L HEMOGLOBIN (test code = HGB) 11.9 g/dL 14.0-18.0 L HEMATOCRIT (test code = HCT) 37.4 % 37.0-49.0 N MEAN CELL VOLUME (test code = MCV) 89 fL 80-94 N MEAN CELL HGB (test code = MCH) 28.4 pg 27-31 N MEAN CELL HGB CONCENTRATION (test code = MCHC) 31.8 g/dL 33-37 L RED CELL DISTRIBUTION WIDTH (test code = RDW) 14.3 % 11.5-15. 5 N PLATELET COUNT (test code = PLT) 185 x10 3/uL 130-400 N MEAN PLATELET VOLUME (test code = MPV) 11.0 fL 9.4-16.4 N NEUTROPHIL % (test code = NT%) 61.0 % 43-65 N IMMATURE GRANULOCYTE % (test code = IG%) 1.2 % 0.0-2.0 N LYMPHOCYTE % (test code = LY%) 30.3 % 20.5-45.5 N MONOCYTE % (test code = MO%) 7.4 % 5.5-11.7 N EOSINOPHIL % (test code = EO%) 0.0 % 0.9-2.9 L BASOPHIL % (test code = BA%) 0.1 % 0.2-1.0 L NUCLEATED RBC % (test code = NRBC%) 0.0 % 0-1.0 N NEUTROPHIL # (test code = NT#) 4.44 x10 3/uL 2.2-4.8 N IMMATURE GRANULOCYTE # (test code = IG#) 0.09 x10 3/uL 0-0.03 H LYMPHOCYTE # (test code = LY#) 2.21 x10 3/uL 1.3-2.9 N MONOCYTE # (test code = MO#) 0.54 x10 3/uL 0.3-0.8 N EOSINOPHIL # (test code = EO#) 0.00 x10 3/uL 0.0-0.2 N BASOPHIL # (test code = BA#) 0.01 x10 3/uL 0.0-0.1 N [id number] 22:02:00* Test Item Value Reference Range Interpretation Comments GLUBED (test code = GLUBED) 126 MG/DL 74-106 H [id number] 16:55:00* Test Item Value Reference Range Interpretation Comments GLUBED (test code = GLUBED) 133 MG/DL 74-106 H [id number] 12:39:00* Test Item Value Reference Range Interpretation Comments GLUBED (test code = GLUBED) 136 MG/DL 74-106 H [id number] 06:15:00* Test Item Value Reference Range Interpretation Comments GLUBED (test code = GLUBED) 148 MG/DL 74-106 H COMPREHENSIVE METABOLIC [id number] 04:41:00* Test Item Value Reference Range Interpretation Comments SODIUM (test code = NA) 136 mmol/L 137-145 L POTASSIUM (test code = K) 3.6 mmol/L 3.4-5.0 N CHLORIDE (test code = CL) 104 mmol/L 98-107 N CARBON DIOXIDE (test code = CO2) 24 mmol/L 22-30 N GLUCOSE (test code = GLU) 141 mg/dL 74-106 H BLOOD UREA NITROGEN (test code = BUN) 10 mg/dL 9-20 N GLOMERULAR FILTRATION RATE (test code = GFR) 124 >60 The estimated glomerular filtration rate is computed usingpatient race, age (>18), sex, and serum creatinine. If anyof the needed data elements are missing the Laboratory cannot compute an estimation of the glomerular filtration rate. CREATININE (test code = CREAT) 0.7 mg/dL 0.7-1.3 N TOTAL PROTEIN (test code = PROT) 6.1 g/dL 6.3-8.2 L ALBUMIN (test code = ALB) 3.5 g/dL 3.5-5.0 N CALCIUM (test code = CA) 8.6 mg/dL 8.4-10.2 N BILIRUBIN TOTAL (test code = BILT) 0.3 mg/dL 0.2-1.3 N BILIRUBIN CONJUGATED (test code = BILCON) 0 mg/dL 0-0.3 N ~~~~~~~~~~~~~~~~~~~~~~~~~~~~~~~~~~~~~~~~~~~~~~~~~~~~~~~~~~~~CONJUGATED BILIRUBIN IS THE REPLACEMENT ASSAY FOR DIRECTBILIRUBIN.~~~~~~~~~~~~~~~~~~~~~~~~~~~~~~~~~~~~~~~~~~~~~~~~~~~~~~~~~~~~ BILIRUBIN UNCONJUGATED (test code = BILUNC) 0.1 mg/dL 0-1.1 N SGOT/AST (test code = AST) 29 U/L 15-46 N SGPT/ALT (test code = ALT) 53 U/L 13-69 N ALKALINE PHOSPHATASE (test code = ALKP) 107 U/L 38-126 N CBC W/AUTO [id number] 04:20:00* Test Item Value Reference Range Interpretation Comments WHITE BLOOD CELL (test code = WBC) 5.9 x10 3/uL 5.0-12.0 N RED BLOOD CELL (test code = RBC) 4.47 x10 6/uL 4.70-6.10 L HEMOGLOBIN (test code = HGB) 12.7 g/dL 14.0-18.0 L HEMATOCRIT (test code = HCT) 39.6 % 37.0-49.0 N MEAN CELL VOLUME (test code = MCV) 89 fL 80-94 N MEAN CELL HGB (test code = MCH) 28.4 pg 27-31 N MEAN CELL HGB CONCENTRATION (test code = MCHC) 32.1 g/dL 33-37 L RED CELL DISTRIBUTION WIDTH (test code = RDW) 14.2 % 11.5-15. 5 N PLATELET COUNT (test code = PLT) 169 x10 3/uL 130-400 N MEAN PLATELET VOLUME (test code = MPV) 10.9 fL 9.4-16.4 N NEUTROPHIL % (test code = NT%) 56.8 % 43-65 N IMMATURE GRANULOCYTE % (test code = IG%) 0.8 % 0.0-2.0 N LYMPHOCYTE % (test code = LY%) 34.4 % 20.5-45.5 N MONOCYTE % (test code = MO%) 7.8 % 5.5-11.7 N EOSINOPHIL % (test code = EO%) 0.0 % 0.9-2.9 L BASOPHIL % (test code = BA%) 0.2 % 0.2-1.0 N NUCLEATED RBC % (test code = NRBC%) 0.0 % 0-1.0 N NEUTROPHIL # (test code = NT#) 3.35 x10 3/uL 2.2-4.8 N IMMATURE GRANULOCYTE # (test code = IG#) 0.05 x10 3/uL 0-0.03 H LYMPHOCYTE # (test code = LY#) 2.03 x10 3/uL 1.3-2.9 N MONOCYTE # (test code = MO#) 0.46 x10 3/uL 0.3-0.8 N EOSINOPHIL # (test code = EO#) 0.00 x10 3/uL 0.0-0.2 N BASOPHIL # (test code = BA#) 0.01 x10 3/uL 0.0-0.1 N [id number] 21:05:00* Test Item Value Reference Range Interpretation Comments GLUBED (test code = GLUBED) 159 MG/DL 74-106 H [id number] 17:49:00* Test Item Value Reference Range Interpretation Comments GLUBED (test code = GLUBED) 130 MG/DL 74-106 H [id number] 12:15:00* Test Item Value Reference Range Interpretation Comments GLUBED (test code = GLUBED) 219 MG/DL 74-106 H COMPREHENSIVE METABOLIC [id number] 06:06:00* Test Item Value Reference Range Interpretation Comments SODIUM (test code = NA) 136 mmol/L 137-145 L POTASSIUM (test code = K) 3.4 mmol/L 3.4-5.0 N CHLORIDE (test code = CL) 105 mmol/L 98-107 N CARBON DIOXIDE (test code = CO2) 21 mmol/L 22-30 L GLUCOSE (test code = GLU) 179 mg/dL 74-106 H BLOOD UREA NITROGEN (test code = BUN) 12 mg/dL 9-20 N GLOMERULAR FILTRATION RATE (test code = GFR) 124 >60 The estimated glomerular filtration rate is computed usingpatient race, age (>18), sex, and serum creatinine. If anyof the needed data elements are missing the Laboratory cannot compute an estimation of the glomerular filtration rate. CREATININE (test code = CREAT) 0.7 mg/dL 0.7-1.3 N TOTAL PROTEIN (test code = PROT) 5.7 g/dL 6.3-8.2 L ALBUMIN (test code = ALB) 3.2 g/dL 3.5-5.0 L CALCIUM (test code = CA) 8.4 mg/dL 8.4-10.2 N BILIRUBIN TOTAL (test code = BILT) 0.4 mg/dL 0.2-1.3 N BILIRUBIN CONJUGATED (test code = BILCON) 0 mg/dL 0-0.3 N ~~~~~~~~~~~~~~~~~~~~~~~~~~~~~~~~~~~~~~~~~~~~~~~~~~~~~~~~~~~~CONJUGATED BILIRUBIN IS THE REPLACEMENT ASSAY FOR DIRECTBILIRUBIN.~~~~~~~~~~~~~~~~~~~~~~~~~~~~~~~~~~~~~~~~~~~~~~~~~~~~~~~~~~~~ BILIRUBIN UNCONJUGATED (test code = BILUNC) 0.4 mg/dL 0-1.1 N SGOT/AST (test code = AST) 34 U/L 15-46 N SGPT/ALT (test code = ALT) 47 U/L 13-69 N ALKALINE PHOSPHATASE (test code = ALKP) 84 U/L 38-126 N [id number] 05:55:00* Test Item Value Reference Range Interpretation Comments GLUBED (test code = GLUBED) 179 MG/DL 74-106 H CBC W/AUTO [id number] 05:51:00* Test Item Value Reference Range Interpretation Comments WHITE BLOOD CELL (test code = WBC) 5.1 x10 3/uL 5.0-12.0 N RED BLOOD CELL (test code = RBC) 4.40 x10 6/uL 4.70-6.10 L HEMOGLOBIN (test code = HGB) 12.7 g/dL 14.0-18.0 L HEMATOCRIT (test code = HCT) 39.0 % 37.0-49.0 N MEAN CELL VOLUME (test code = MCV) 89 fL 80-94 N MEAN CELL HGB (test code = MCH) 28.9 pg 27-31 N MEAN CELL HGB CONCENTRATION (test code = MCHC) 32.6 g/dL 33-37 L RED CELL DISTRIBUTION WIDTH (test code = RDW) 14.5 % 11.5-15. 5 N PLATELET COUNT (test code = PLT) 155 x10 3/uL 130-400 N MEAN PLATELET VOLUME (test code = MPV) 11.2 fL 9.4-16.4 N NEUTROPHIL % (test code = NT%) 54.6 % 43-65 N IMMATURE GRANULOCYTE % (test code = IG%) 0.4 % 0.0-2.0 N LYMPHOCYTE % (test code = LY%) 36.7 % 20.5-45.5 N MONOCYTE % (test code = MO%) 8.3 % 5.5-11.7 N EOSINOPHIL % (test code = EO%) 0.0 % 0.9-2.9 L BASOPHIL % (test code = BA%) 0.0 % 0.2-1.0 L NUCLEATED RBC % (test code = NRBC%) 0.0 % 0-1.0 N NEUTROPHIL # (test code = NT#) 2.78 x10 3/uL 2.2-4.8 N IMMATURE GRANULOCYTE # (test code = IG#) 0.02 x10 3/uL 0-0.03 N LYMPHOCYTE # (test code = LY#) 1.87 x10 3/uL 1.3-2.9 N MONOCYTE # (test code = MO#) 0.42 x10 3/uL 0.3-0.8 N EOSINOPHIL # (test code = EO#) 0.00 x10 3/uL 0.0-0.2 N BASOPHIL # (test code = BA#) 0.00 x10 3/uL 0.0-0.1 N [id number] 22:04:00* Test Item Value Reference Range Interpretation Comments GLUBED (test code = GLUBED) 114 MG/DL 74-106 H - CT ABD PELVIS [id number] 14:37:00 FAX: Yefri Goldberg [phone] [place]: St: [facility] FAX: Fouzia Pickett [phone] Name: BECKYJUAN F SHAFFER [facility] : 1965 Age/S: 54/M [address] Unit: [id number] Loc: C.[address] [place] [address] Phys: Yefri Zambrano MD Acct: [id number] Dis Date: Status: ADM IN PHONE #: [phone] Exam Date: 08/28/2019 1430 FAX #: [phone] Reason: Fever EXAMS: CPT CODE: [id number] CT ABD PELVIS W/CONT [id number] Examination: CT scan abdomen and pelvis with contrast. Location code: H 60. TECHNIQUE: Multiple axial images of the abdomen and pelvis were obtained after intravenous administration of contr ast with sagittal and coronal reconstructions. CT examination was perform ed using automated dose reduction. Discussion: Clinical hist ory significant for abdominal pain shortness of breath and fever. The liver, spleen, adrenal glands, pancreas and kidneys are normal in appearance. No radiopaque gallstones are identified. Incidental note is made of 1.5 cm hypodensity within the right kidney consistent with the p resence of a small renal cyst. It appears to be simple in nature. Bowel loops are normal in caliber. No enlarged retroperitoneal, pelvic or ingui nal adenopathy is identified. The bladder is moderately distended and is grossly unremarkable. Mild sigmoid diverticulosis is noted. There is no CT evidence for diverticulitis. Lung bases are unremarkable. IMPRESSION: 1. Simple right renal cyst. Oth erwise Normal CT scan of abdomen and pelvis. at 1437 Reported a nd signed by: Bacilio Jauregui MD CC: Yefri Zambrano MD; Orlin Pickett Technologist: BLAYNE REDDY Trnscrd Dt/Tm: 08/28/2019 (1437) [email or web address] Orig P rint D/T: S: 08/28/2019 (1440 PAGE 1 Signed Report CBC W/AUTO [id number] 11:06:00* Test Item Value Reference Range Interpretation Comments WHITE BLOOD CELL (test code = WBC) 4.2 x10 3/uL 5.0-12.0 L RED BLOOD CELL (test code = RBC) 4.41 x10 6/uL 4.70-6.10 L HEMOGLOBIN (test code = HGB) 12.9 g/dL 14.0-18.0 L HEMATOCRIT (test code = HCT) 39.1 % 37.0-49.0 N MEAN CELL VOLUME (test code = MCV) 89 fL 80-94 N MEAN CELL HGB (test code = MCH) 29.3 pg 27-31 N MEAN CELL HGB CONCENTRATION (test code = MCHC) 33.0 g/dL 33-37 N RED CELL DISTRIBUTION WIDTH (test code = RDW) 14.5 % 11.5-15. 5 N PLATELET COUNT (test code = PLT) 135 x10 3/uL 130-400 N MEAN PLATELET VOLUME (test code = MPV) 11.4 fL 9.4-16.4 N NEUTROPHIL % (test code = NT%) 53.1 % 43-65 N IMMATURE GRANULOCYTE % (test code = IG%) 0.5 % 0.0-2.0 N LYMPHOCYTE % (test code = LY%) 34.3 % 20.5-45.5 N MONOCYTE % (test code = MO%) 12.1 % 5.5-11.7 H EOSINOPHIL % (test code = EO%) 0.0 % 0.9-2.9 L BASOPHIL % (test code = BA%) 0.0 % 0.2-1.0 L NUCLEATED RBC % (test code = NRBC%) 0.0 % 0-1.0 N NEUTROPHIL # (test code = NT#) 2.23 x10 3/uL 2.2-4.8 N IMMATURE GRANULOCYTE # (test code = IG#) 0.02 x10 3/uL 0-0.03 N LYMPHOCYTE # (test code = LY#) 1.44 x10 3/uL 1.3-2.9 N MONOCYTE # (test code = MO#) 0.51 x10 3/uL 0.3-0.8 N EOSINOPHIL # (test code = EO#) 0.00 x10 3/uL 0.0-0.2 N BASOPHIL # (test code = BA#) 0.00 x10 3/uL 0.0-0.1 N PLATELET ESTIMATE (test code = PLTEST) ADEQUATE ADEQUATE PLATELET MORPHOLOGY (test code = PLTMORPH) LARGE PLATELETS SEEN NOR MAL CBC W/AUTO [id number] 06:24:00* Test Item Value Reference Range Interpretation Comments WHITE BLOOD CELL (test code = WBC) 4.2 x10 3/uL 5.0-12.0 L RED BLOOD CELL (test code = RBC) 4.41 x10 6/uL 4.70-6.10 L HEMOGLOBIN (test code = HGB) 12.9 g/dL 14.0-18.0 L HEMATOCRIT (test code = HCT) 39.1 % 37.0-49.0 N MEAN CELL VOLUME (test code = MCV) 89 fL 80-94 N MEAN CELL HGB (test code = MCH) 29.3 pg 27-31 N MEAN CELL HGB CONCENTRATION (test code = MCHC) 33.0 g/dL 33-37 N RED CELL DISTRIBUTION WIDTH (test code = RDW) 14.5 % 11.5-15. 5 N PLATELET COUNT (test code = PLT) 135 x10 3/uL 130-400 N MEAN PLATELET VOLUME (test code = MPV) 11.4 fL 9.4-16.4 N NEUTROPHIL % (test code = NT%) 53.1 % 43-65 N IMMATURE GRANULOCYTE % (test code = IG%) 0.5 % 0.0-2.0 N LYMPHOCYTE % (test code = LY%) 34.3 % 20.5-45.5 N MONOCYTE % (test code = MO%) 12.1 % 5.5-11.7 H EOSINOPHIL % (test code = EO%) 0.0 % 0.9-2.9 L BASOPHIL % (test code = BA%) 0.0 % 0.2-1.0 L NUCLEATED RBC % (test code = NRBC%) 0.0 % 0-1.0 N NEUTROPHIL # (test code = NT#) 2.23 x10 3/uL 2.2-4.8 N IMMATURE GRANULOCYTE # (test code = IG#) 0.02 x10 3/uL 0-0.03 N LYMPHOCYTE # (test code = LY#) 1.44 x10 3/uL 1.3-2.9 N MONOCYTE # (test code = MO#) 0.51 x10 3/uL 0.3-0.8 N EOSINOPHIL # (test code = EO#) 0.00 x10 3/uL 0.0-0.2 N BASOPHIL # (test code = BA#) 0.00 x10 3/uL 0.0-0.1 N COMPREHENSIVE METABOLIC [id number] 06:19:00* Test Item Value Reference Range Interpretation Comments SODIUM (test code = NA) 137 mmol/L 137-145 N POTASSIUM (test code = K) 3.6 mmol/L 3.4-5.0 N CHLORIDE (test code = CL) 107 mmol/L 98-107 N CARBON DIOXIDE (test code = CO2) 20 mmol/L 22-30 L GLUCOSE (test code = GLU) 163 mg/dL 74-106 H BLOOD UREA NITROGEN (test code = BUN) 12 mg/dL 9-20 N GLOMERULAR FILTRATION RATE (test code = GFR) 148 >60 The estimated glomerular filtration rate is computed usingpatient race, age (>18), sex, and serum creatinine. If anyof the needed data elements are missing the Laboratory cannot compute an estimation of the glomerular filtration rate. CREATININE (test code = CREAT) 0.6 mg/dL 0.7-1.3 L TOTAL PROTEIN (test code = PROT) 5.5 g/dL 6.3-8.2 L ALBUMIN (test code = ALB) 3.1 g/dL 3.5-5.0 L CALCIUM (test code = CA) 8.0 mg/dL 8.4-10.2 L BILIRUBIN TOTAL (test code = BILT) 0.4 mg/dL 0.2-1.3 N BILIRUBIN CONJUGATED (test code = BILCON) 0 mg/dL 0-0.3 N ~~~~~~~~~~~~~~~~~~~~~~~~~~~~~~~~~~~~~~~~~~~~~~~~~~~~~~~~~~~~CONJUGATED BILIRUBIN IS THE REPLACEMENT ASSAY FOR DIRECTBILIRUBIN.~~~~~~~~~~~~~~~~~~~~~~~~~~~~~~~~~~~~~~~~~~~~~~~~~~~~~~~~~~~~ BILIRUBIN UNCONJUGATED (test code = BILUNC) 0.3 mg/dL 0-1.1 N SGOT/AST (test code = AST) 30 U/L 15-46 N SGPT/ALT (test code = ALT) 49 U/L 13-69 N ALKALINE PHOSPHATASE (test code = ALKP) 69 U/L 38-126 N HGBA1C - GLYCOSYLATED [id number] 06:17:00* Test Item Value Reference Range Interpretation Comments GLYCOSYLATED HEMOGLOBIN (HA1C) (test code = GLYHGB) 7.0 % 0- 5.9 H Current guidelines recommend a treatment goal of <7% fordiabetic patients. A1c may be overestimated in diabeticpatients exhibiting poor control and who are alsoheterozygous or homozygous for HgbS or HgbC. Totalglycohemoglobin is a better indicator of diabetic control inpatients with these hemoglobin variants. PROSTATE SPECIFIC [id number] 18:11:00* Test Item Value Reference Range Interpretation Comments PROSTATE SPECIFIC ANTIGEN (test code = PSA) 0.223 ng/mL 0.0-4.0 N UA RFLX MICR CULT IF [id number] 17:56:00* Test Item Value Reference Range Interpretation Comments UA COLOR (test code = COLU) Yellow Yellow UA APPEARANCE (test code = APPU) Slightly-Cloudy Clear UA GLUCOSE DIPSTICK (test code = DGLUU) Negative Negative UA BILIRUBIN DIPSTICK (test code = BILU) Negative Negative UA KETONE DIPSTICK (test code = KETU) Negative mg/dL Negative UA SPECIFIC GRAVITY (test code = SGU) 1.025 <1.030 UA BLOOD DIPSTICK (test code = BINTA) Negative Negative UA PH DIPSTICK (test code = JARED) 7.0 5.0-8.0 UA PROTEIN DIPSTICK (test code = PROU) 30 (1+) mg/dL Negative A UA UROBILINOGEN DIPSTICK (test code = URO) Negative mg/dL Negative UA NITRITE DIPSTICK (test code = CRISTINA) Negative Negative UA LEUKOCYTE ESTERASE DIPSTICK (test code = LEUU) NEGATIVE Nega tive UA WBC (test code = WBCUR) 0-3 /HPF <4-5 < 10 WBC/HPF = PYURIA ABSENT URINE CULTURE NOT INDICATED UA RBC (test code = RBCU) 3-5 /HPF <4-5 UA BACTERIA (test code = BACU) None /HPF None-Rare UA SQUAMOUS CELLS (test code = SQU) 0-5 (RARE) /HPF 0-5 (RARE) UA MUCUS (test code = MUCU) 1+ /LPF <Rare A SOURCE OF URINE: CLEAN CATCHIndication for culture: Temperature > 100.4 F COMPREHENSIVE METABOLIC [id number] 15:02:00* Test Item Value Reference Range Interpretation Comments SODIUM (test code = NA) 134 mmol/L 137-145 L POTASSIUM (test code = K) 3.6 mmol/L 3.4-5.0 N CHLORIDE (test code = CL) 104 mmol/L 98-107 N CARBON DIOXIDE (test code = CO2) 23 mmol/L 22-30 N GLUCOSE (test code = GLU) 185 mg/dL 74-106 H BLOOD UREA NITROGEN (test code = BUN) 13 mg/dL 9-20 N GLOMERULAR FILTRATION RATE (test code = GFR) 124 >60 The estimated glomerular filtration rate is computed usingpatient race, age (>18), sex, and serum creatinine. If anyof the needed data elements are missing the Laboratory cannot compute an estimation of the glomerular filtration rate. CREATININE (test code = CREAT) 0.7 mg/dL 0.7-1.3 N TOTAL PROTEIN (test code = PROT) 5.7 g/dL 6.3-8.2 L ALBUMIN (test code = ALB) 3.3 g/dL 3.5-5.0 L CALCIUM (test code = CA) 8.4 mg/dL 8.4-10.2 N BILIRUBIN TOTAL (test code = BILT) 0.4 mg/dL 0.2-1.3 N BILIRUBIN CONJUGATED (test code = BILCON) 0 mg/dL 0-0.3 N ~~~~~~~~~~~~~~~~~~~~~~~~~~~~~~~~~~~~~~~~~~~~~~~~~~~~~~~~~~~~CONJUGATED BILIRUBIN IS THE REPLACEMENT ASSAY FOR DIRECTBILIRUBIN.~~~~~~~~~~~~~~~~~~~~~~~~~~~~~~~~~~~~~~~~~~~~~~~~~~~~~~~~~~~~ BILIRUBIN UNCONJUGATED (test code = BILUNC) 0.4 mg/dL 0-1.1 N SGOT/AST (test code = AST) 32 U/L 15-46 N SGPT/ALT (test code = ALT) 44 U/L 13-69 N ALKALINE PHOSPHATASE (test code = ALKP) 64 U/L 38-126 N CBC W/AUTO [id number] 14:47:00* Test Item Value Reference Range Interpretation Comments WHITE BLOOD CELL (test code = WBC) 5.5 x10 3/uL 5.0-12.0 N RED BLOOD CELL (test code = RBC) 4.51 x10 6/uL 4.70-6.10 L HEMOGLOBIN (test code = HGB) 12.8 g/dL 14.0-18.0 L HEMATOCRIT (test code = HCT) 40.6 % 37.0-49.0 N MEAN CELL VOLUME (test code = MCV) 90 fL 80-94 N MEAN CELL HGB (test code = MCH) 28.4 pg 27-31 N MEAN CELL HGB CONCENTRATION (test code = MCHC) 31.5 g/dL 33-37 L RED CELL DISTRIBUTION WIDTH (test code = RDW) 14.6 % 11.5-15. 5 N PLATELET COUNT (test code = PLT) 124 x10 3/uL 130-400 L MEAN PLATELET VOLUME (test code = MPV) 11.3 fL 9.4-16.4 N NEUTROPHIL % (test code = NT%) 65.2 % 43-65 H IMMATURE GRANULOCYTE % (test code = IG%) 0.4 % 0.0-2.0 N LYMPHOCYTE % (test code = LY%) 18.9 % 20.5-45.5 L MONOCYTE % (test code = MO%) 15.5 % 5.5-11.7 H EOSINOPHIL % (test code = EO%) 0.0 % 0.9-2.9 L BASOPHIL % (test code = BA%) 0.0 % 0.2-1.0 L NUCLEATED RBC % (test code = NRBC%) 0.0 % 0-1.0 N NEUTROPHIL # (test code = NT#) 3.59 x10 3/uL 2.2-4.8 N IMMATURE GRANULOCYTE # (test code = IG#) 0.02 x10 3/uL 0-0.03 N LYMPHOCYTE # (test code = LY#) 1.04 x10 3/uL 1.3-2.9 L MONOCYTE # (test code = MO#) 0.85 x10 3/uL 0.3-0.8 H EOSINOPHIL # (test code = EO#) 0.00 x10 3/uL 0.0-0.2 N BASOPHIL # (test code = BA#) 0.00 x10 3/uL 0.0-0.1 N LIPID PROFILE (CORONARY RISK)2019-08-26 00:37:00* Test Item Value Reference Range Interpretation Comments TRIGLYCERIDES (test code = TRIG) 72 mg/dL TRIGLYCERIDES REFERENCE RANGE:Normal: <150 mg/dLBorderline High: 150-199 mg/dLHigh: 200-499 mg/dLVery High: >=500 mg/dL CHOLESTEROL (test code = CHOL) 98 mg/dL CHOLESTEROL REFERENCE RANGE:DESIRABLE: < 200 mg/dLBORDERLINE: 200-239 mg/dLHIGH: >=240 mg/dL HDL CHOLESTEROL (test code = HDL) 21 mg/dL 40-59 L LIPOPROTEIN LDL (test code = LDLC) 53.25 mg/dL 32-99 N CORONARY RISK FACTOR (test code = RISK) 4.67 CHOL/HDL RISK MALE: 1/2 AVG 3.43 FEMALE: 1/2 AVG 3.27 AVG 4.97 AVG 4.44 2X AVG 9.55 2X AVG 7.05 3X AVG 23.39 3X AVG 11.04~~~~~~~~~~~~~~~~~~~~~~~~~~~~~~~~~~~~~~~~~~~~~~~~~~~~~~~~~~~~National Cholesterol Education (NCEP) Guidelines:~~~~~~~~~~~~~~~~~~~~~~~~~~~~~~~~~~~~~~~~~~~~~~~~~~~~~~~~~~~~ HDL Cholesterol<40mg/dL: HDL Cholesterol (Major risk factor for CHD)>60mg/dL: HDL Cholesterol (Negative risk factor for CHD)40-59mg/dL: Borderline Risk LDL Cholesterol<100mg/dL: Desirable LDL-C imcijyndgscvq997-206fv/dL: Borderline High Risk LDL-C utrufgdiclnio144-687lw/dL: High risk LDL-C concentration HDL-LDL Cholesterol is affected by a number of factors suchas smoking, age and sex.~~~~~~~~~~~~~~~~~~~~~~~~~~~~~~~~~~~~~~~~~~~~~~~~~~~~~~~~~~~~ LIPID PROFILE (CORONARY RISK)2019-08-26 00:25:00* Test Item Value Reference Range Interpretation Comments TRIGLYCERIDES (test code = TRIG) 72 mg/dL TRIGLYCERIDES REFERENCE RANGE:Normal: <150 mg/dLBorderline High: 150-199 mg/dLHigh: 200-499 mg/dLVery High: >=500 mg/dL CHOLESTEROL (test code = CHOL) 98 mg/dL CHOLESTEROL REFERENCE RANGE:DESIRABLE: < 200 mg/dLBORDERLINE: 200-239 mg/dLHIGH: >=240 mg/dL HDL CHOLESTEROL (test code = HDL) 21 mg/dL 40-59 L LIPOPROTEIN LDL (test code = LDLC) mg/dL 32-99 CORONARY RISK FACTOR (test code = RISK) 4.67 CHOL/HDL RISK MALE: 1/2 AVG 3.43 FEMALE: 1/2 AVG 3.27 AVG 4.97 AVG 4.44 2X AVG 9.55 2X AVG 7.05 3X AVG 23.39 3X AVG 11.04~~~~~~~~~~~~~~~~~~~~~~~~~~~~~~~~~~~~~~~~~~~~~~~~~~~~~~~~~~~~National Cholesterol Education (NCEP) Guidelines:~~~~~~~~~~~~~~~~~~~~~~~~~~~~~~~~~~~~~~~~~~~~~~~~~~~~~~~~~~~~ HDL Cholesterol<40mg/dL: HDL Cholesterol (Major risk factor for CHD)>60mg/dL: HDL Cholesterol (Negative risk factor for CHD)40-59mg/dL: Borderline Risk LDL Cholesterol<100mg/dL: Desirable LDL-C hqodzptmoandr181-212py/dL: Borderline High Risk LDL-C vfverbwbcudhy994-107bw/dL: High risk LDL-C concentration HDL-LDL Cholesterol is affected by a number of factors suchas smoking, age and sex.~~~~~~~~~~~~~~~~~~~~~~~~~~~~~~~~~~~~~~~~~~~~~~~~~~~~~~~~~~~~ POC ARTERIAL BLOOD [id number] 22:26:00* Test Item Value Reference Range Interpretation Comments POC ARTERIAL BLOOD GAS PH (test code = POCPHA) 7.402 7.35-7. 45 N POC ARTERIAL BLOOD GAS PCO2 (test code = [id number]) 35.8 mmHg 35- 45 N POC ARTERIAL BLOOD GAS PO2 (test code = XKQYD8S) 66 mmHg 80-90 L POC HCO3 ARTERIAL (test code = FYLFZW2N) 22.3 mmol/L 22.0-24.0 N POC BASE EXCESS (test code = POCBEA) -2 mmol/L -2.0-2.0 N POC O2 SATURATION (test code = POCO2S) 93 % 95-98 L ABG DELIVERY (test code = EMELINA) Room Air DR NOTIFIED ABG SITE (test code = SITEA) L Rad ALLENS TEST (test code = ALLENS) Pass - CT ANGIO [id number] 21:56:00 [place]: St: REG Name: JUAN F RUFFIN [facility] : 4 Age/S: 54/M [address] Unit: [id number] Loc: [place] [address] Phys: Gilberto Pina MD Acct: [id number] Dis Date: Status: REG ER PHONE #: [phone] Exam Date: 08/25/2019 2140 FAX #: [phone] Reason: pe pna EXAMS: CPT CODE: [id number] CT ANGIO CHEST [id number] Site ID: [id number] EXAMINA TION: CTA chest. Technique: Axial images with coronal and sagittal reconstructions with MIP technique are performed of chest with angiogram protocol. 100 mL of Isovue-300 administered intravenously. One or more of the following radiation dose reduction techniques was used: automated exposure control, adjustment of mA and/or KV according to patie nt size, and/or utilization of iterative reconstruction technique. HISTORY: pe pna . COMPARISON: None. FINDINGS: There is skzi-fo-pmbginpt degree of opacification of the pulmonary arteries with no central filling defects to suggest pulmonary embolism. T he degree of opacification does not allow good evaluation of the segmental and subsegmental branches. There is better opacification of the thoracic aorta which is normal in caliber and demonstrate no dissection. The heart size is normal. No pericardial effusion. No pleural effusion. There is no lymphadenopathy in the reji, mediastinum or in the axilla. Projecting into the upper mediastinum is a mass arising from the left thyroid lobe with s mooth margins. The left lobe measures 6.3 x 5 x 3.7 cm. The right thyroid lobe appears normal. The lungs demonstrate no significant co nsolidation, nodule or mass. Sections in the upper abdomen demonst rate mild distention of the gallbladder with no calcified stones seen. The osseous structures demonstrate mild degenerative changes in the thoracic spine. IMPRESSION: 1. No central pulmonary embolism. The segmental and subsegmental branches are not well evaluated due to the l ow degree of opacification. 2. Enlarged left thyroid gland. Foll ow-up thyroid ultrasound is recommended. PAGE 1 Signed Report (CONTINUED) [place]: St: REG Name: JUAN F PENA [facility] : 1965 Age/S: 54/M [address] Unit: [id number] Loc: [place] [address] Phys: Gilberto Pina MD Acct: [id number] Dis Date: Status: REG ER PHONE #: [phone] Exam Date: 08/25/20192139 FAX #: [phone] Reason: pe pna EXAMS: CPT CODE: [id number] CT ANGIO CHEST [address]25 <Continued> at 2156 Reported and signed by: Aldair Yen MD CC: Technologist: ISAURO LEONARD Trnscrd Dt/Tm: 08/25/2019 (6316) [employer] Orig Print D/T: S: 08/25/2019 (2159 PAGE 2 Signed Report Coronavirus 2019 nCoV Bedside 2019-08-25 20:55:00* Test Item Value Reference Range Interpretation Comments Coronavirus 2019 nCoV Bedside (test code = [id number]) Negative NEGATIVE This test has been authorized by FDA under an EUA for use byauthorized laboratories; This test has been authorized only for the detection ofnucleic acid from SARS-CoV-2, not for any other viruses orpathogens; and This test is only authorized for the duration of thedeclaration that circumstances exist justifying theauthorization of emergency use of in vitro diagnostic testsfor detection and/or diagnosis of COVID-19 under Anxvhsa211(b)(1) of the Act, 21 U.S.C. 360bbb-3(b)(1), unless theauthorization is terminated or revoked sooner. I attest I have received Administrative Approval to enter the order. YES PROTHROMBIN [id number] 19:41:00* Test Item Value Reference Range Interpretation Comments PROTHROMBIN TIME PATIENT (test code = PTP) 15.4 SECONDS 9.2-12.1 H INTERNATIONAL NORMAL RATIO (test code = INR) 1.4 The INR is to be used only for monitoring ORAL ANTICOAGULANTTHERAPY. Indication INR Value1. Prophylaxis/treatment of: Venous Thrombosis, Pulmonary Embolism 2.0 - 3.02. Prevention of systemic embolism from: Tissue heart valves 2.0 - 3.0 Acute myocardial infarction (to present systemic embolism)* 2.0 - 3.0 Valvular heart disease 2.0 - 3.0 Atrial fibrillation 2.0 - 3.03. Mechanical prosthetic valves (high risk) 2.5 - 3.5 * If oral anticoagulant therapy is elected to preventrecurrent myocardial infarction, an INR of 2.5-3.5 isrecommended, consistent with Food and Drug Administrationrecommendations. THROMBOPLASTIN TIME [id number] 19:41:00* Test Item Value Reference Range Interpretation Comments THROMBOPLASTIN TIME PARTIAL (test code = PTT) 30.3 SECONDS 23.4-37. 0 N Therapeutic Range for Heparin EFFECTIVE 10/27/12 Heparin IU/mL aPTT Seconds0.3 64.30.7 88.8 Coronavirus 2019 nCoV [id number] 19:10:00* Test Item Value Reference Range Interpretation Comments Coronavirus 2019 nCoV Bedside (test code = [id number]) Negative NEGATIVE This test has been authorized by FDA under an EUA for use byauthorized laboratories; This test has been authorized only for the detection ofnucleic acid from SARS-CoV-2, not for any other viruses orpathogens; and This test is only authorized for the duration of thedeclaration that circumstances exist justifying theauthorization of emergency use of in vitro diagnostic testsfor detection and/or diagnosis of COVID-19 under Eweqyes328(b)(1) of the Act, 21 U.S.C. 360bbb-3(b)(1), unless theauthorization is terminated or revoked sooner. I attest I have received Administrative Approval to enter the order. YES COMPREHENSIVE METABOLIC [id number] 19:06:00* Test Item Value Reference Range Interpretation Comments SODIUM (test code = NA) 131 mmol/L 137-145 L POTASSIUM (test code = K) 3.7 mmol/L 3.4-5.0 N CHLORIDE (test code = CL) 100 mmol/L 98-107 N CARBON DIOXIDE (test code = CO2) 22 mmol/L 22-30 N GLUCOSE (test code = GLU) 145 mg/dL 74-106 H BLOOD UREA NITROGEN (test code = BUN) 13 mg/dL 9-20 N GLOMERULAR FILTRATION RATE (test code = GFR) 124 >60 The estimated glomerular filtration rate is computed usingpatient race, age (>18), sex, and serum creatinine. If anyof the needed data elements are missing the Laboratory cannot compute an estimation of the glomerular filtration rate. CREATININE (test code = CREAT) 0.7 mg/dL 0.7-1.3 N TOTAL PROTEIN (test code = PROT) 6.5 g/dL 6.3-8.2 N ALBUMIN (test code = ALB) 3.9 g/dL 3.5-5.0 N CALCIUM (test code = CA) 8.7 mg/dL 8.4-10.2 N BILIRUBIN TOTAL (test code = BILT) 1.1 mg/dL 0.2-1.3 N BILIRUBIN CONJUGATED (test code = BILCON) 0 mg/dL 0-0.3 N ~~~~~~~~~~~~~~~~~~~~~~~~~~~~~~~~~~~~~~~~~~~~~~~~~~~~~~~~~~~~CONJUGATED BILIRUBIN IS THE REPLACEMENT ASSAY FOR DIRECTBILIRUBIN.~~~~~~~~~~~~~~~~~~~~~~~~~~~~~~~~~~~~~~~~~~~~~~~~~~~~~~~~~~~~ BILIRUBIN UNCONJUGATED (test code = BILUNC) 0.9 mg/dL 0-1.1 N SGOT/AST (test code = AST) 28 U/L 15-46 N SGPT/ALT (test code = ALT) 35 U/L 13-69 N ALKALINE PHOSPHATASE (test code = ALKP) 59 U/L 38-126 N - XR CHEST 1 [id number] 19:05:00 [place]: St: REG Name: JUAN F AVILA [facility] : [birth year] Age/S: 54/M [address] Unit #: [id number] Loc: [place] [address] Phys: Gilberto Pina MD Acct: [id number] Dis Date: Status: REG ER PHONE #: [phone] Exam Date: 08/25/2019 1855 FAX #: [phone] Reason: SOB EXAMS: CPT CODE: [id number] XR CHEST 1 V 41758 Examination: One view chest x-ray Location code: H60 Comparison: None D iscussion: Clinical history is remarkable for fever. Heart is pro minent. Lungs are clear of consolidating infiltrates. No masses, nodules or effusions identified. Impression: 1. Normal one view chest x-ray. at 1905 Reported and signed by: Bradley Jauregui MD CC: Technologist: BRITTON ALMODOVAR Date/Time/By: 08/25/2019 (1904) : By: [email or web address] PAGE 1 Signed Report [place]: St: REG Name: JUAN F PENA DOLORES [facility] : 1965 Age/S: 54/M [address] Unit #: [id number] Loc: [place] [address] Phys: Gilberto Pina MD Acct: [id number] Dis Date: Status: REG ER PHONE #: [phone] Exam Date: 08/25/2019 1855 FAX #: [phone] Reason: SOB EXAMS: CPT CODE: [id number] XR CHEST 1 V 51544 <Continued> Orig Print D/T: S: 08/25/2019 (1908) PAGE 2 Signed Report LACTIC [id number] 19:04:00* Test Item Value Reference Range Interpretation Comments LACTIC ACID (test code = LACT) 1.0 mmol/L 0.7-2.0 N CBC W/AUTO [id number] 18:47:00* Test Item Value Reference Range Interpretation Comments WHITE BLOOD CELL (test code = WBC) 9.4 x10 3/uL 5.0-12.0 N RED BLOOD CELL (test code = RBC) 4.80 x10 6/uL 4.70-6.10 N HEMOGLOBIN (test code = HGB) 13.8 g/dL 14.0-18.0 L HEMATOCRIT (test code = HCT) 42.3 % 37.0-49.0 N MEAN CELL VOLUME (test code = MCV) 88 fL 80-94 N MEAN CELL HGB (test code = MCH) 28.8 pg 27-31 N MEAN CELL HGB CONCENTRATION (test code = MCHC) 32.6 g/dL 33-37 L RED CELL DISTRIBUTION WIDTH (test code = RDW) 14.4 % 11.5-15. 5 N PLATELET COUNT (test code = PLT) 143 x10 3/uL 130-400 N MEAN PLATELET VOLUME (test code = MPV) 11.3 fL 9.4-16.4 N NEUTROPHIL % (test code = NT%) 80.9 % 43-65 H IMMATURE GRANULOCYTE % (test code = IG%) 0.5 % 0.0-2.0 N LYMPHOCYTE % (test code = LY%) 8.0 % 20.5-45.5 L MONOCYTE % (test code = MO%) 10.5 % 5.5-11.7 N EOSINOPHIL % (test code = EO%) 0.0 % 0.9-2.9 L BASOPHIL % (test code = BA%) 0.1 % 0.2-1.0 L NUCLEATED RBC % (test code = NRBC%) 0.0 % 0-1.0 N NEUTROPHIL # (test code = NT#) 7.62 x10 3/uL 2.2-4.8 H IMMATURE GRANULOCYTE # (test code = IG#) 0.05 x10 3/uL 0-0.03 H LYMPHOCYTE # (test code = LY#) 0.75 x10 3/uL 1.3-2.9 L MONOCYTE # (test code = MO#) 0.99 x10 3/uL 0.3-0.8 H EOSINOPHIL # (test code = EO#) 0.00 x10 3/uL 0.0-0.2 N BASOPHIL # (test code = BA#) 0.01 x10 3/uL 0.0-0.1 N TROPONIN I [id number] 18:36:00* Test Item Value Reference Range Interpretation Comments TROPONIN I RAPID (test code = TROPIRAP) 0.01 ng/mL 0.00-0.079 N ISTAT TROPONIN I CRITERIA0.00-0.08 ng/mL - Negative>0.08 ng/mL - Positive The use of serial sampling and testing protocol is arecommended practice.An elevated troponin level alone is often not sufficient fordiagnosis of myocardial infarction. Troponin results obtained by different assays may vary.Evaluation of the extent of myocardial damage based onincrease of troponin would be valid only if similarmethodology is used. CHEST 2 [id number] 11:37:00 [place] [id number] Patient Name: JUAN F PENA MR #: [id number] : 1965 Age/Sex: 54/M Req #: [id number] Adm Physician: Ordered by: HOLLEY PARIS MD Report #: [id number] Location: DX Room/Bed: Procedure: [id number] DX/CHEST 2 V IEWS Exam Date: 08/24/19 Exam Time: 1100 REPORT STATUS: Signed EXAMINATION: CHEST 2 VIEWS INDICATION: Pre-operative COMPARISON: None FINDIN GS: LINES/TUBES:None LUNGS:The lungs are hyperinflated. No focal conso lidation or pulmonary edema. PLEURA:No pleural effusion or pneumothorax. MEDIASTINUM:The cardiomediastinal silhouette appears normal in size and shape. BONES/SOFT TISSUES:No acute osseous injury. ABDOMEN:No free air under the diaphragm. IMPRESSION: Hyperinflated lungs. No focal pneumonia or pulmonary edema. Signed by: Michell Turner MD on 08/24/2019 11:38 AM D ictated By: MICHELL TURNER MD 1 138 Transcribed By: JASWANT on 08/24/19 1138 COPY TO: HOLLEY PARIS MD Large Joint Arthrocentesis: knee, Bilateral [id number] 15:45:00 Guillermo Choi MD 04/05/2019 4:32 PMLarge Joint Arthrocentesis: kn ee, Bilateral kneeConsent given by: patientSite marked: site markedSupporting Do cumentationIndications: pain Procedure DetailsPreparation: Patient was prepped a nd draped in the usual sterile fashionLocation: knee - Bilateral knee Right side :Needle size: 22 GApproach: anterolateralRight knee medications administered: 3 mL lidocaine 10 mg/mL (1 %); 40 mg triamcinolone acetonide 40 mg/mL (1 mL)Patien t tolerance: patient tolerated the procedure well with no immediate complication s Left side:Needle size: 22 GApproach: anterolateralLeft knee medications admin istered: 3 mL lidocaine 10 mg/mL (1 %); 40 mg triamcinolone acetonide 40 mg/mL ( 2 mL)Patient tolerance: patient tolerated the procedure well with no immediate c omplications Demetris Schneider
[2020-02-27] MEDS ORDERED: PROMETHAZINE HCL (IM) 25 MG/ML VIAL IM ONE (11:49)
[2020-02-27] MEDS: MORPHINE SULFATE 2 MG/ML SYR 1ML IV PRN ×5 (11:50→23:18)
[2020-02-27 12:55] VITALS: BP 142/93
--- NOTE | 2020-02-27 13:00 | NUR ---
PT TO THE FLOOR FROM PACU. VITALS WNL. PT DENIES NEEDS AT THIS TIME.
[2020-02-27] MEDS ORDERED: MIDAZOLAM HCL 2 MG/2 ML VIAL ONE (13:41)
[2020-02-27 14:00] VITALS: BP 142/93
[2020-02-27] MEDS: LACTATED RINGER'S 1,000 ML IV SCH (14:03)
[2020-02-27] MEDS ORDERED: PROPOFOL IV EMULSION 10 MG/ML 20 ML VIAL ONE (14:16)
[2020-02-27] MEDS ORDERED: SEVOFLURANE INHAL SOLN 250 ML PEN BTL ONE (14:16)
[2020-02-27] MEDS ORDERED: NEOSTIGMINE 1 MG/ML 10ML VIAL ONE (14:16)
[2020-02-27] MEDS ORDERED: ROCURONIUM BROMIDE 10 MG/ML 5ML VIAL IV ONE (14:16)
[2020-02-27] MEDS ORDERED: GLYCOPYRROLATE INJ 0.2 MG/ML VIAL ONE (14:16)
[2020-02-27] MEDS ORDERED: DEXAMETHASONE SOD PHOS INJ 4 MG/ML VIAL ONE (14:16)
[2020-02-27] MEDS ORDERED: ONDANSETRON HCL INJ 2MG/ML 2ML 2 MG/ML VIAL ONE (14:16)
[2020-02-27] MEDS ORDERED: PHENYLEPHRINE HCL 1% 10 MG/ML VIAL ONE (14:16)
[2020-02-27] MEDS ORDERED: LIDOCAINE HCL 2% LOCAL INJ 5 ML SDV VIAL INJ ONE (14:16)
[2020-02-27 16:30] VITALS: BP 119/77
--- NOTE | 2020-02-27 18:21 | History and Physical ---
CHIEF COMPLAINT: "I had weight loss surgery." HISTORY OF PRESENT ILLNESS: This is a 54-year-old white man, who was initially admitted to [facility] with diagnosis of extreme obesity with BMI of 57 that was complicating his underlying hypertension and obstructive sleep apnea. Today, the patient underwent laparoscopic vertical sleeve gastrectomy that was performed by Dr. Corey Coronado. The patient tolerated the surgery quite well. The patient states his pain is currently controlled. REVIEW OF SYSTEMS: GENERAL: Weight has been stable. No fever or chills. HEENT: No headaches. No visual changes. CARDIOVASCULAR/RESPIRATORY: No chest pain. No short of breath. No cough. GI: He notes slight belching as well as a minimal flatus. The patient denies any bowel movement today since he has had surgery. No nausea or vomiting. : No Daniel catheter.in place. NEUROMUSCULAR: No limb weakness or numbness. ALLERGIES: NO KNOWN DRUG ALLERGIES. PAST MEDICAL HISTORY: 1. Extreme obesity with BMI of 57. 2. Hypertensive heart disease. 3. Obstructive sleep apnea. 4. Hyperlipidemia. 5. Depression. 6. Allergic rhinitis. 7. Type 2 diabetes mellitus. FAMILY HISTORY: Father of myocardial infarction. SOCIAL HISTORY: He is , lives with his . He is unemployed, receiving disability benefits. Quit smoking tobacco in 2017. The patient denies any alcohol use. PAST SURGICAL HISTORY: 1. Laparoscopic vertical sleeve gastrectomy today. 2. Umbilical hernia repair in 2006. 3. Appendectomy in 1972. HOME MEDICATIONS: 1. Acetaminophen with codeine in the form of Tylenol No. 3, one pill daily as needed for pain. 2. Aspirin 325 mg daily. 3. Atenolol 50 mg daily. 4. Atorvastatin 10 mg at bedtime. 5. Zyrtec 10 mg daily. 6. Duloxetine 60 mg daily. 7. Furosemide 60 mg once daily as needed for leg swelling. 8. Lisinopril 20 mg daily. 9. Multivitamin once daily. 10. Potassium chloride 20 mEq daily. 11. Tizanidine 4 mg once daily as needed for muscle spasms. 12. Topiramate 50 mg at bedtime. 13. Diclofenac 50 mg b.i.d. p.r.n. arthritic pain. 14. Metformin 850 mg b.i.d. PHYSICAL EXAMINATION: GENERAL: On exam, he is slightly somnolent, but is arousable. He is very pleasant and cooperative to exam. He is fully oriented. His is at bedside. VITAL SIGNS: Height 6 feet, weight is 424 pounds, BMI of 57, blood pressure 140/90, pulse 80, respiratory rate 18, oxygen saturation 95% on 3 L oxygen, temperature 97.6. Integument: Skin is warm and dry. No pallor, jaundice, diaphoresis. HEENT: Anterior sclerae. Moist mucous membranes. NECK: Supple. CARDIOVASCULAR: Distant heart sounds. Regular rate and rhythm. LUNGS: Clear lungs. He has adequate air entry bilaterally. ABDOMEN: Soft. No bowel sounds appreciated. The trocar laparoscopic incision sites are clean, dry, and intact. EXTREMITIES: No edema or deformity. He is currently wearing sequential compression devices in his bilateral lower legs. NEUROLOGIC: Intact. No deficits appreciated. DIAGNOSES: 1. Status post laparoscopic sleeve gastrectomy. 2. Extreme obesity with BMI of 57. 3. Hypertensive heart disease. 4. Type 2 diabetes mellitus. 5. Obstructive sleep apnea. PLAN: 1. Mobilize the patient. 2. Encourage CPAP use at night for the patient's obstructive sleep apnea. 3. Continue intravenous fluids. 4. Follow electrolytes and renal function. 5. Restart home blood lowering medications. 6. Encourage incentive spirometry usage to prevent atelectasis. 7. We will start enoxaparin to help prevent deep venous thromboses. I would like to thank Dr. Corey Coronado for involving me in the care of the patient. I spent 50 minutes in the care of this patient. MD AYSHA Cisneros/MARKOS /[id number] PO
[2020-02-27 20:00] VITALS: BP 119/77
[2020-02-27] MEDS ORDERED: ATORVASTATIN 20 MG TAB PO SCH (21:00)
[2020-02-27] MEDS: ENOXAPARIN SOD INJ 40 MG/0.4 ML SYR SC SCH (21:28)
[2020-02-28] VITALS: BP 14/78
[2020-02-28] MEDS: LACTATED RINGER'S 1,000 ML IV SCH (01:00)
[2020-02-28 06:22] LABS: BASOPHILS % 0.2 % (0.0-1.0); HEMATOCRIT 45.4 % (38.2-49.6); HEMOGLOBIN 13.4 g/dL (14.0-18.0); LYMPHOCYTES # (AUTO) 1.5 (1.0-3.2); LYMPHOCYTES % 14.4 % (18.0-39.1); MEAN CORPUSCULAR HEMOGLOBIN 25.8 pg (28-32); MEAN CORPUSCULAR HGB CONC 29.5 g/dL (31-35); MEAN CORPUSCULAR VOLUME 87.3 fL (81-99); MONOCYTES # (AUTO) 0.9 (0.2-0.8); MONOCYTES % 8.4 % (4.4-11.3); NEUTROPHILS # (AUTO) 8.2 (2.1-6.9); NEUTROPHILS % 76.5 % (38.7-80.0); PLATELET COUNT 213 x10e3/uL (140-360); RED CELL DISTRIBUTION WIDTH 16.4 % (11.7-14.4)
[2020-02-28 06:34] VITALS: BP 142/85
--- NOTE | 2020-02-28 07:00 | NUR ---
BEDSIDE SHIFT REPORT FROM SHEET SORTER RN. PT DENIES NEEDS AT THIS TIME.
[2020-02-28 07:05] LABS: ALANINE AMINOTRANSFERASE 40 IU/L (0-55); ALBUMIN 4.1 g/dL (3.5-5.0); ALBUMIN/GLOBULIN RATIO 1.4 (0.8-2.0); ALKALINE PHOSPHATASE 58 IU/L (40-150); ANION GAP 14.8 mmol/L (8-16); BLOOD UREA NITROGEN 11 mg/dL (7-26); BUN/CREATININE RATIO 13 (6-25); CALCIUM 8.9 mg/dL (8.4-10.2); CARBON DIOXIDE 23 mmol/L (22-29); CHLORIDE 104 mmol/L (98-107); CREATININE, SERUM 0.82 mg/dL (0.72-1.25); EST GLOMERULAR FILTRATION RATE > 60 ML/MIN (60-); GLUCOSE 143 mg/dL (74-118); PHOSPHORUS 2.9 MG/DL (2.3-4.7); POTASSIUM 3.8 mmol/L (3.5-5.1); SODIUM 138 mmol/L (136-145)
[2020-02-28] MEDS ORDERED: HYDROCODONE/APAP 7.5MG-325MG 1 EA TAB PO PRN (08:15)
--- NOTE | 2020-02-28 08:23 | NUR ---
Progress note S: No major complaints O: AF, VSS General- no acute distress Abdomen- soft, incisions c/d/i A/P: POD 1, s/p Lap sleeve gastrectomy -Clears, ambulate, IS, OOB to chair -DC home -F/u in 1-2 weeks; diet instructions given to patient
[2020-02-28 08:25] VITALS: BP 150/87
[2020-02-28 08:33] VITALS: BP 150/87
[2020-02-28] MEDS: ENOXAPARIN SOD INJ 40 MG/0.4 ML SYR SC SCH (08:53)
[2020-02-28] MEDS ORDERED: LORATADINE 10 MG TAB PO SCH (09:00)
[2020-02-28] MEDS ORDERED: DULOXETINE HCL 30 MG DELAYED RELEASE PO SCH (09:00)
[2020-02-28] MEDS ORDERED: ATENOLOL 50 MG TAB PO SCH (09:00)
[2020-02-28] MEDS: MORPHINE SULFATE 2 MG/ML SYR 1ML IV PRN (09:01)
--- NOTE | 2020-02-28 09:04 | Discharge Summary ---
ADMISSION DIAGNOSES: 1. Extreme obesity, BMI 57, complicating underlying hypertension, type 2 diabetes mellitus and obstructive sleep apnea. 2. Status post laparoscopic sleeve gastrectomy. 3. Hypertensive heart disease. 4. Type 2 diabetes mellitus. 5. Obstructive sleep apnea. HOSPITAL COURSE: This is a 54-year-old white man, who was initially admitted to [facility] with diagnosis of extreme obesity, BMI 57 that was complicating underlying hypertensive heart disease, type 2 diabetes mellitus and obstructive sleep apnea. During this hospitalization, the patient underwent successful laparoscopic sleeve gastrectomy that was performed by Dr. Corey Coronado. The patient's brief hospitalization was unremarkable. The patient's condition on discharge was stable. The patient is tolerating a clear liquid diet on discharge. The patient was also ambulating without difficulty on day of discharge. DISCHARGE MEDICATIONS: 1. Tylenol No.3 300 mg/30 mg one tablet every 4 hours p.r.n. pain, 30 prescribed no refills. 2. Ondansetron 4 mg every 6 hours p.r.n. nausea and vomiting, 20 prescribed no refills. 3. Aspirin 325 mg daily. 4. Atenolol 50 mg daily. 5. Atorvastatin 10 mg at bedtime. 6. Zyrtec 10 mg daily. 7. Duloxetine 60 mg daily. 8. Furosemide 60 mg once daily as needed for leg swelling. 9. Lisinopril 20 mg daily. 10. Multivitamin daily. 11. Potassium chloride 20 mEq daily. 12. Tizanidine 4 mg once daily as needed for muscle spasms. 13. Topiramate 50 mg at bedtime. 14. Diclofenac 50 mg b.i.d. p.r.n. arthritic pain. 15. Metformin 800 mg b.i.d. FOLLOWUP INSTRUCTIONS: The patient was instructed to follow up with Dr. Coronado within 1 week and with his primary care physician within 2 weeks. MD AYSHA Cisneros/MARKOS /[id number] cc: Corey Coronado MD MTDD
== END 2020-02-28 11:52 | disposition home or self-care (01) | DRG 621 ==
LOC: OR 08:29 → PACU V 11:29 → MED/SURG 12:55
PROVIDERS: ADMIT Internal Medicine; ATTEND Internal Medicine
PROC: 0DB64Z3 Excision of Stomach, Percutaneous Endoscopic Approach, Vertical (ICD-10-PCS; principal; 2020-02-27 10:30)
DX: E66.01 Morbid (severe) obesity due to excess calories (principal); E11.9 Type 2 diabetes mellitus without complications; I11.9 Hypertensive heart disease without heart failure; Z68.43 Body mass index [BMI] 50.0-59.9, adult; G47.33 Obstructive sleep apnea (adult) (pediatric); Z11.59 Encounter for screening for other viral diseases; J30.9 Allergic rhinitis, unspecified; F32.9 Major depressive disorder, single episode, unspecified
CPT/HCPCS: 36415; 80048; 80053; 82948; 83735; 84100; 85025; 93005; J0690; J1100; J1650; J2001; J2250; J2270; J2370; J2405; J2550; J2710; J2765; J3010; J7121